=== PATIENT | male | born 1945 | race Caucasian/White ===

== ENCOUNTER 2016-07-24 10:48 | Observation (INO) | payer BC, MEDICARE ==
[2016-07-24 14:25] LABS: BASOPHIL % 0.2 % (0.0-0.4); Lymphocytes % 13.8 % (24.0-44.0); Mean Cell Volume 96.6 fl (78-100); Mean Platelet Volume 9.9 fl (6-9.5); Platelet Count 73 K/mm3 (150-450); Red Blood Count 3.77 M/mm3 (4.1-5.6); Red Cell Distribution Width 15.1 % (11.5-14.0); White Blood Count 12.4 K/mm3 (4.0-10.5)
[2016-07-24 14:28] LABS: Mean Corpuscular Hemoglobin 29.9 pg (26-32)
[2016-07-24 14:34] LABS: ALBUMIN 3.1 g/dL (3.4-5.0); ANION GAP 19.5 MEQ/L (5-15); BILIRUBIN,TOTAL 1.1 mg/dL (0.2-1.0); Carbon Dioxide 16.7 mEq/L (21-32); Potassium 4.7 mEq/L (3.5-5.1); Total Protein 8.4 gm/dL (6.4-8.2)
[2016-07-24] MEDS: Sodium Chloride 0.9% 1000 ML 1,000 ML IV SCH (14:57)
[2016-07-24] MEDS: ROCEPHIN 1 Gm-D5w 50 ml Bag** 1 G/50 ML IVPB IV SCH (15:01)
--- NOTE | 2016-07-24 15:03 | XRAY ---
Indication: Short of breath. Productive cough. Comparison: None PA/lateral chest demonstrates right lower lobe infiltrate versus atelectasis. Remaining heart and lungs normal. Bony thorax intact with mild spinal degenerative changes.
[2016-07-24 19:07] LABS: Bacteria MODERATE /HPF (NEGATIVE); COMPLETE URINE MICROSCOPIC? YES; Collection Type CLEAN CATCH; Epithelial Cells FEW /HPF (FEW); Mucus MODERATE /HPF (NEGATIVE); WBC 15-25 /HPF (0-5)
[2016-07-24] MEDS: COREG 12.5 MG PO SCH (21:35)
[2016-07-25] MEDS: Sodium Chloride 0.9% 1000 ML 1,000 ML IV SCH (05:03)
[2016-07-25] MEDS: COREG 12.5 MG PO SCH ×2 (10:21→21:38)
[2016-07-25] MEDS: Amaryl 2 MG PO SCH (10:21)
[2016-07-25] MEDS: ROCEPHIN 1 Gm-D5w 50 ml Bag** 1 G/50 ML IVPB IV SCH (10:22)
[2016-07-25] MEDS: Flomax 0.4 MG PO SCH (10:22)
[2016-07-25 10:58] LABS: Mean Cell Volume 95.4 fl (78-100); Mean Platelet Volume 9.5 fl (6-9.5); Platelet Count 52 K/mm3 (150-450); Red Blood Count 3.27 M/mm3 (4.1-5.6); Red Cell Distribution Width 14.8 % (11.5-14.0); White Blood Count 6.6 K/mm3 (4.0-10.5)
[2016-07-25 11:03] LABS: Mean Corpuscular Hemoglobin 29.9 pg (26-32)
[2016-07-25 11:57] LABS: ALBUMIN 2.7 g/dL (3.4-5.0); ANION GAP 16.1 MEQ/L (5-15); BILIRUBIN,TOTAL 0.5 mg/dL (0.2-1.0); Potassium 4.4 mEq/L (3.5-5.1); Total Protein 7.1 gm/dL (6.4-8.2)
--- NOTE | 2016-07-25 14:29 | PROG NOTE ---
DATE: 07/25/16 Chart reviewed. Events noted. At the time of this evaluation, the patient is alert, awake, and comfortable. States his shortness of breath and cough are feeling better. Diarrhea has improved. Denies abdominal pain, nausea, or vomiting. VITALS: BP 114/58, heart rate 66, respiratory rate 18, temperature 97.6, O2 saturation 94%. HEENT: Pallor present. No icterus noted. NECK: No JVD present. CVS: S1 and S2 present. RESPIRATORY: Breath sounds bilaterally diminished. Bibasilar crackles present. ABDOMEN: Obese, soft, nontender. NEURO: He is alert and oriented X 3. Evaluation of motor strength in bilateral upper and lower extremities reveals grossly intact motor strength. EXTREMITIES: Reveals no edema on bilateral lower extremities. LABORATORY DATA: Labs from 07/24/16 were reviewed. Today's labs show CBC with WBC of 6.6, Hgb 9.8, Hgb 31.2, platelets 52. CMP shows bicarbonate of 18, BUN 64, creatinine 3.28. UA shows positive nitrite, 25-50 RBC, 15-25 WBC, a few epithelial cells, moderate bacteria. Chest x-ray from 07/24/16 shows right lower lobe infiltrate vs atelectasis. Blood cultures are pending. Medications were reviewed. ASSESSMENT: 70 y/o male with impression: 1. URINARY TRACT INFECTION. 2. PNEUMONIA. 3. ANEMIA (MILD DROP IN HGB/HCT). 4. HISTORY OF DIARRHEA WITH BLACK STOOLS (IMPROVING). 5. RENAL INSUFFICIENCY. 6. HISTORY OF HYPERTENSION. 7. HISTORY OF DIABETES MELLITUS. PLAN: 1. Continue IV hydration. 2. Continue broad spectrum IV antibiotics. 3. Continue to follow CBC, electrolytes, and cultures. Patient's clinical condition, work-up results, and plan of management were discussed with patient and family. They seem to be in understanding and agreement.
[2016-07-25] MEDS ORDERED: DUONEB 0.5-3 MG/3 ml Neb IH PRN (20:23)
[2016-07-26 05:41] LABS: Mean Cell Volume 94.8 fl (78-100); Mean Platelet Volume 10.5 fl (6-9.5); Platelet Count 63 K/mm3 (150-450); Red Blood Count 3.09 M/mm3 (4.1-5.6); Red Cell Distribution Width 14.7 % (11.5-14.0); White Blood Count 6.3 K/mm3 (4.0-10.5)
[2016-07-26 05:51] LABS: Mean Corpuscular Hemoglobin 29.7 pg (26-32)
[2016-07-26 06:23] LABS: ANION GAP 16.3 MEQ/L (5-15); Carbon Dioxide 16.6 mEq/L (21-32); Potassium 4.1 mEq/L (3.5-5.1)
--- NOTE | 2016-07-26 08:18 | XRAY ---
Indication: Pneumonia. Comparison: July 24, 2016. PA/lateral chest obtained with lateral view slightly degraded by respiration artifact. There remains right lower lobe infiltrate/atelectasis unchanged. Remaining heart and lungs unremarkable. Comment: Preliminary interpretation was made by [facility]. No critical discrepancy.
[2016-07-26] MEDS: Sodium Chloride 0.9% 1000 ML 1,000 ML IV SCH (09:34)
[2016-07-26] MEDS: ROCEPHIN 1 Gm-D5w 50 ml Bag** 1 G/50 ML IVPB IV SCH (09:36)
[2016-07-26] MEDS: Flomax 0.4 MG PO SCH (09:36)
[2016-07-26] MEDS: Amaryl 2 MG PO SCH (09:36)
[2016-07-26] MEDS: COREG 12.5 MG PO SCH ×2 (09:36→22:35)
[2016-07-26 19:15] LABS: Collection Type CLEAN CATCH
[2016-07-26 19:16] LABS: Bacteria MODERATE /HPF (NEGATIVE); COMPLETE URINE MICROSCOPIC? YES; Epithelial Cells MODERATE /HPF (FEW); Ph 5.5 (5-6); WBC 25-50 /HPF (0-5)
[2016-07-27] MEDS: Sodium Chloride 0.9% 1000 ML 1,000 ML IV SCH ×2 (00:26→16:02)
[2016-07-27 05:42] LABS: Mean Cell Volume 95.6 fl (78-100); Mean Corpuscular Hemoglobin 29.8 pg (26-32); Mean Platelet Volume 9.8 fl (6-9.5); Platelet Count 49 K/mm3 (150-450); Red Blood Count 2.95 M/mm3 (4.1-5.6); Red Cell Distribution Width 14.4 % (11.5-14.0); White Blood Count 3.4 K/mm3 (4.0-10.5)
[2016-07-27 06:08] LABS: ALBUMIN 2.4 g/dL (3.4-5.0); ANION GAP 14.7 MEQ/L (5-15); BILIRUBIN,TOTAL 0.2 mg/dL (0.2-1.0); Carbon Dioxide 17.3 mEq/L (21-32); Potassium 3.8 mEq/L (3.5-5.1); Total Protein 6.4 gm/dL (6.4-8.2)
--- NOTE | 2016-07-27 08:00 | XRAY ---
Indication: Pneumonia. Comparison: One day earlier. PA/lateral chest unchanged again demonstrating right lower lobe infiltrate/atelectasis. Remaining heart and lungs unremarkable. No new abnormalities.
[2016-07-27] MEDS: ROCEPHIN 1 Gm-D5w 50 ml Bag** 1 G/50 ML IVPB IV SCH (09:25)
[2016-07-27] MEDS: Flomax 0.4 MG PO SCH (09:25)
[2016-07-27] MEDS: Amaryl 2 MG PO SCH (09:25)
[2016-07-27] MEDS: COREG 12.5 MG PO SCH ×2 (09:25→20:58)
[2016-07-27] MEDS ORDERED: D50W 50 ml Abboject IV ONE ×2 (21:35→21:37)
[2016-07-27] MEDS ORDERED: Dextrose 5%-NS IV Solution 1000 ML 1,000 ML IV ONE (21:36)
[2016-07-27] MEDS: D50W 50 ml Abboject IV ONE ×2 (21:40→21:48)
[2016-07-27] MEDS ORDERED: Dextrose 5%-NS IV Solution 1000 ML 1,000 ML IV SCH (22:00)
[2016-07-28 06:14] LABS: Mean Cell Volume 95.7 fl (78-100); Mean Corpuscular Hemoglobin 29.8 pg (26-32); Mean Platelet Volume 9.9 fl (6-9.5); Platelet Count 51 K/mm3 (150-450); Red Blood Count 3.02 M/mm3 (4.1-5.6); Red Cell Distribution Width 14.5 % (11.5-14.0); White Blood Count 2.3 K/mm3 (4.0-10.5)
[2016-07-28 06:31] LABS: ANION GAP 16.1 MEQ/L (5-15); Carbon Dioxide 17.6 mEq/L (21-32); Potassium 3.9 mEq/L (3.5-5.1)
--- NOTE | 2016-07-28 08:52 | XRAY ---
Indication: Bloating. Possible colitis. History of right renal cancer. Multiple contiguous axial images obtained through the abdomen and pelvis without contrast as ordered. Comparison: None Images through the lung bases and upper abdomen are degraded by respiration artifact. Lung bases grossly clear. Heart is not enlarged. Gastroesophageal varices present. Stomach is fluid distended. Noncontrasted bowel loops appear nonobstructed. Minimal scattered colonic diverticulosis. Liver appears cirrhotic. Spleen is enlarged measuring 16 cm in greatest dimension. Previous cholecystectomy. No free fluid/air. There is a 7.2 cm right upper pole renal mass. Left kidney is atrophic along with hydronephrosis and 1.7 cm hydroureter. No calculus in either system. Urinary bladder demonstrates circumferential wall thickening either By incomplete distention versus cystitis. Enlarged/nodular prostate gland impresses on the base of the bladder. Remaining pancreas and adrenal glands appear unremarkable for noncontrasted exam. Mild aortoiliac calcifications without AAA. Osseous structures intact with mild degenerative changes throughout the spine. Small bilateral fatty inguinal hernias. Impression: 1. Right renal mass presumed known cancer as clinically reported. Atrophic left kidney with hydronephrosis and hydroureter but no calculus. Findings could be chronic or explained by recent passage of calculus. 2. Urinary bladder wall thickening either explained by incomplete distention versus underlying cystitis. Correlate clinically. 3. Cirrhotic liver, splenomegaly, and gastroesophageal varices. 4. Diverticulosis without diverticulitis. 5. Bilateral fatty inguinal hernias. Comment: Preliminary interpretation was made by [facility]. No discrepancy. CTDI 27.71
[2016-07-28] MEDS: ROCEPHIN 1 Gm-D5w 50 ml Bag** 1 G/50 ML IVPB IV SCH (09:14)
[2016-07-28] MEDS: Flomax 0.4 MG PO SCH (09:14)
[2016-07-28] MEDS: COREG 12.5 MG PO SCH (09:14)
[2016-07-28 10:57] VITALS: BP 124/68; PULSE 66
[2016-07-28 11:05] VITALS: O2SAT 96
--- NOTE | 2016-07-28 14:07 | PCM.DS ---
Discharge Summary Date of Admission: 07/24/16 10:59 Admitting Physician: BING SALGADO Primary Care Provider: BING SALGADO Allergies Allergies No Known Drug Allergies Allergy (Verified 07/24/16 13:48) Hospital Summary - Hospital Course Hospital Course: Chief Complaint Diagnosis colitis Allergies Allergy/AdvReac Type Severity Reaction Status Date / Time No Known Drug Allergies Allergy Verified 07/24/16 13:48 Vital Signs (Last 24 hours) Temp Pulse Resp BP Pulse Ox 07/28/16 11:03 96 07/28/16 10:56 98.2 F 66 18 124/68 95 07/28/16 07:13 98.0 F 64 18 122/58 96 07/28/16 07:05 67 18 97 07/28/16 03:54 98.2 F 66 22 153/70 94 L 07/28/16 00:08 98.2 F 71 22 131/76 95 07/27/16 21:14 95 07/27/16 20:00 97.7 F 66 20 140/63 95 07/27/16 16:00 97.8 F 61 20 149/72 93 L Home Medications Medication Instructions Recorded Confirmed Last Taken Type Carvedilol 12.5 mg [Coreg 12.5 12.5 mg PO BID 07/24/16 07/24/16 Unknown History mg] Current Medications Generic Name Dose Route Start Last Admin Trade Name Freq PRN Reason Stop Dose Admin Albuterol/Ipratropium 3 ml 07/25/16 20:23 07/25/16 20:25 Duoneb 0.5-3 Mg/3 Ml Neb IH 08/24/16 20:22 3 ml Q4HPRN PRN Administration SHORTNESS OF BREATH/WHEEZING Carvedilol 12.5 mg 07/24/16 22:00 07/28/16 09:14 Coreg 12.5 Mg PO 08/23/16 21:59 12.5 mg BID CAMERON Administration Ceftriaxone Sodium/Dextrose 1 g in 50 mls @ 100 mls/hr 07/24/16 14:45 09:14 Rocephin 1 Gm-D5w 50 Ml Bag IV 08/23/16 14:44 100 mls/hr Q24H10 CAMERON Administration Dextrose/Sodium Chloride 1,000 mls @ 50 mls/hr 07/27/16 22:00 07/27/16 21:49 Dextrose 5%-Ns Iv Solution 1000 Ml IV 08/26/16 21:59 50 mls/hr .Q20H CAMERON Administration Tamsulosin HCl 0.4 mg 07/25/16 10:00 07/28/16 09:14 Flomax 0.4 Mg PO 08/24/16 09:59 0.4 mg DAILY CAMERON Administration Discontinued Medications Generic Name Dose Route Start Last Admin Trade Name Altagracia PRN Reason Stop Dose Admin Dextrose 50 ml 07/27/16 21:37 07/27/16 21:48 D50w 50 Ml Abboject IV 07/27/16 21:38 50 ml STAT ONE Administration Dextrose Confirm 07/27/16 21:35 D50w 50 Ml Abboject Administered 07/27/16 21:36 Dose 100 ml IV .STK-MED ONE Dextrose 100 ml 07/27/16 21:37 07/27/16 21:49 D50w 50 Ml Abboject IV 07/27/16 21:38 50 ml STAT ONE Administration Glimepiride 4 mg 07/25/16 10:00 07/27/16 09:25 Amaryl 2 Mg PO 08/24/16 09:59 4 mg DAILY CAMERON Administration Sodium Chloride 1,000 mls @ 75 mls/hr 07/24/16 14:30 07/27/16 16:02 Sodium Chloride 0.9% 1000 Ml IV 08/23/16 14:29 75 mls/hr .[id number] CAMERON Administration Dextrose/Sodium Chloride Confirm 07/27/16 21:36 Dextrose 5%-Ns Iv Solution 1000 Ml Administered 07/27/16 21:37 Dose 1,000 mls @ ud IV .STK-MED ONE Intake & Output (Last 24 hours) 07/26/16 07/27/16 07/28/16 07/29/16 11:59 11:59 11:59 11:59 Intake Total 3626 4094 3466 380 Output Total 375 1000 900 Balance 3251 3094 2566 380 Microbiology Results (Last 24 hours) 07/24/16 18:40 Clean Catch Midstream - Final Staphylococcus Epidermidis Laboratory Results (Last 24 hours) 07/28/16 07/28/16 05:40 05:40 WBC 2.3 L RBC 3.02 L Hgb 9.0 L Hct 28.9 L MCV 95.7 MCH 29.8 MCHC 31.1 L RDW 14.5 H Plt Count 51 L MPV 9.9 H Sodium 144 Potassium 3.9 Chloride 114 H Carbon Dioxide 17.6 L Anion Gap 16.1 H BUN 48 H Creatinine 2.22 H Estimated GFR 31 Glucose 95 Calcium 7.9 L Slides for Path Review YES Orders (Last 24 hours) Category Date Time Status BMP AM.LAB Lab 07/28/16 05:40 Completed CBC AM.LAB Lab 07/28/16 05:40 Completed D5ns 1000 ml [Dextrose 5%-NS IV Solution 1000 ML] 1,000 Med 07/27/16 22:00 Active ml IV 50 mls/hr D5ns 1000 ml [Dextrose 5%-NS IV Solution 1000 ML] 1,000 Med 07/27/16 21:36 Discontinued ml IV UD Dextrose 50%-Water Syringe [D50W 50 ml Abboject] Med 07/27/16 21:37 Discontinued 100 ml IV STAT ONE Dextrose 50%-Water Syringe [D50W 50 ml Abboject] Med 07/27/16 21:37 Discontinued 50 ml IV STAT ONE Patient Care Notes (Last 24 hours) 07/27/16 22:13 Nursing Note by Lety Conteh after checking pt blood sugar at 2058 [address] Zavala informed nursing that pt accu check was 51 and pt was lethargic. nursing found pt to be lethargic, diaphoretic, with slurred speech. pt was given orange juice with added sugar which he drank without difficulty. pt refused ice cream but did drink a partial regular soda. pt remained lethergic and slurred. pt was oreinter to person and place but not to time. [facility] notified physician orders were entered and dextrose given per APR as ordered. pt condition slowly improved until he was once again alert and oriented and speech returned to normal at 2200. pt accu ck at 220 was 290. pt encouraged to eat some protein and was provided with a ham sandwich per his request, but at the time of this not had not eaten any of it. pt denies needs and is resting in bed without distress. Initialized on 07/27/16 22:13 - END OF NOTE 07/27/16 17:25 [employer] Note by Claudia Pratt Pt refuses to use urinal. Initialized on 07/27/16 17:25 - END OF NOTE Patient is feeling better, last 24 hours events noted, patient also understand about CT scan report. Patient has right renal mass which has not grown recently , patient is also informed about right loer lobe pneumonia and advise to stay on abx for 5 more days, follow up with Dr Myles Salgado in 3 days - Vitals & Intake/Output Vital Signs: Vital Signs Temperature 98.2 F 07/28/16 10:56 Pulse Rate 66 07/28/16 10:56 Respiratory Rate 18 07/28/16 10:56 Blood Pressure 124/68 07/28/16 10:56 O2 Sat by Pulse Oximetry 96 07/28/16 11:03 Intake & Output: Intake & Output 07/26/16 07/27/16 07/28/16 07/29/16 11:59 11:59 11:59 11:59 Intake Total 3626 4094 3466 380 Output Total 375 1000 900 Balance 3251 3094 2566 380 - Lab Result Diagrams: 07/28/16 05:40 07/28/16 05:40 Lab Results-Last 24 Hrs: Accuchecks Date 07/28/16 Date 07/28/16 Date 07/28/16 Date 07/27/16 Date 07/27/16 Time 11:30 Time 07:30 Time 05:15 Time 20:59 Time 16:30 Accucheck Value: 177 Accucheck Value: 110 Accucheck Value: 96 Accucheck Value: 51 Accucheck Value: 62 Lab Results-Last 24 Hours 07/28/16 07/28/16 Range/Units 05:40 05:40 WBC 2.3 L (4.0-10.5) K/mm3 RBC 3.02 L (4.1-5.6) M/mm3 Hgb 9.0 L (12.5-18.0) gm/dl Hct 28.9 L (42-50) % MCV 95.7 (78-100) fl MCH 29.8 (26-32) pg MCHC 31.1 L (32-36) g/dl RDW 14.5 H (11.5-14.0) % Plt Count 51 L (150-450) K/mm3 MPV 9.9 H (6-9.5) fl Sodium 144 (136-145) mEq/L Potassium 3.9 (3.5-5.1) mEq/L Chloride 114 H (98-107) mEq/L Carbon Dioxide 17.6 L (21-32) mEq/L Anion Gap 16.1 H (5-15) MEQ/L BUN 48 H (9-20) mg/dL Creatinine 2.22 H (0.55-1.30) mg/dl Estimated GFR 31 ML/MIN Glucose 95 (70-110) MG/DL Calcium 7.9 L (8.5-10.1) mg/dL Slides for Path Review YES Micro Results-Entire Visit: Microbiology 07/24/16 18:40 - Final Clean Catch Midstream Staphylococcus Epidermidis 07/24/16 11:30 Blood Culture - Preliminary Blood NO GROWTH TO DATE Accuchecks Date 07/28/16 Date 07/28/16 Date 07/28/16 Date 07/27/16 Date 07/27/16 Time 11:30 Time 07:30 Time 05:15 Time 20:59 Time 16:30 Accucheck Value: 177 Accucheck Value: 110 Accucheck Value: 96 Accucheck Value: 51 Accucheck Value: 62 - Radiology Exams Ordered Rad Exams-Entire Visit: Radiology Procedures Category Date Time Status CHEST 2 VIEWS (PA AND LAT) DAILY Exams 07/26/16 14:15 Completed CHEST 2 VIEWS (PA AND LAT) Routine Exams 07/27/16 08:00 Completed - Procedures and Test Procedures and Tests throughout Hospitalization: Therapy Orders & Screens 07/25/16 20:25 Respiratory Nebulizer UD Comment: duoneb q4prn Diagnosis: colitis 07/27/16 11:01 Incentive Spirometry Assessmen UD Comment: Diagnosis: colitis Discharge Exam General Appearance: no apparent distress, alert Neurologic Exam: alert, oriented x 3, cooperative, normal mood/affect, nml cerebellar function, sensation nml, No motor deficits Skin Exam: normal color, warm, dry Eye Exam: PERRL, EOMI, eyes nml inspection Ears, Nose, Throat Exam: normal ENT inspection, pharynx normal, moist mucous membranes Neck Exam: normal inspection, non-tender, supple, full range of motion Respiratory Exam: normal breath sounds, lungs clear, No respiratory distress Cardiovascular Exam: regular rate/rhythm, normal heart sounds Gastrointestinal/Abdomen Exam: soft, No tenderness, No mass Extremity Exam: normal inspection, normal range of motion Back Exam: normal inspection, normal range of motion, No CVA tenderness, No vertebral tenderness Male Genitalia Exam: deferred Rectal Exam: deferred Final Diagnosis/Problem List - Final Discharge Diagnosis/Problem (1) Pneumonia Current Visit: Yes Status: Acute (2) Mass of right kidney Current Visit: Yes Status: Chronic - Discharge Discharge Date: 07/28/16 Disposition: Home, Self-Care Condition: Stable Prescriptions: New Levofloxacin [Levaquin] 250 mg PO DAILY #5 tablet Continue Glimepiride 2 mg [Amaryl 2 MG] 4 mg PO DAILY Tamsulosin HCl 0.4 mg [Flomax 0.4 MG] 0.4 mg PO DAILY Carvedilol 12.5 mg [Coreg 12.5 mg] 12.5 mg PO BID Instructions: Pneumonia -- Adult Follow up with: BING SALGADO MD [Primary Care Provider] - Call for Appointment Forms: Discharge Instructions
== END 2016-07-28 15:10 | disposition home or self-care (01) ==
LOC: MED SURG 10:59
PROVIDERS: ADMIT General Practice; ATTEND General Practice
DX: J18.9 Pneumonia, unspecified organism (principal); N39.0 Urinary tract infection, site not specified; N28.89 Other specified disorders of kidney and ureter; E11.65 Type 2 diabetes mellitus with hyperglycemia; C64.1 Malignant neoplasm of right kidney, except renal pelvis; D64.9 Anemia, unspecified; A09 Infectious gastroenteritis and colitis, unspecified; I10 Essential (primary) hypertension; M19.90 Unspecified osteoarthritis, unspecified site; N40.0 Benign prostatic hyperplasia without lower urinary tract symptoms; Z79.899 Other long term (current) drug therapy
CPT/HCPCS: 36415; 71020; 74176; 80048; 80053; 81000; 82962; 83036; 85025; 85027; 87040; 87077; 87086; 87186; 94640; 94760; G0378; J0696; A9270-GY

== ENCOUNTER 2018-10-21 19:53 | Emergency (ER) | payer BC, MEDICARE ==
--- NOTE | 2018-10-21 19:55 | ERPHSYRPT ---
- History of Present Illness Time Seen by Provider: 10/21/18 19:55 Source: patient Exam Limitations: no limitations Physician History: 73 y/o white male on MWF dialysis for renal failure presents with slow ooze from left forearm AV fistula site. pt is relatively new at dialysis. site accessed yesterday and oozing is slow but present. here for evaluation Timing/Duration: yesterday Severity: mild Location: other (left forearm av fistula site) Associated Symptoms: denies symptoms Allergies/Adverse Reactions: No Known Drug Allergies Allergy (Unverified 10/21/18 20:02) Home Medications: Tamsulosin HCl 0.4 mg [Flomax 0.4 MG] 0.4 mg PO DAILY 09/09/14 [History] Bumetanide 2 mg PO BID 02/10/18 [History] Ergocalciferol (Vitamin D2) [Vitamin D2] 50,000 unit PO Q7D 02/10/18 [History] Ferrous Fumarate [Ferretts] 325 mg PO BID 02/10/18 [History] Levothyroxine Sodium 100 Mcg [Synthroid 100 Mcg] 100 mcg PO DAILY 02/10/18 [History] Potassium Chloride 10 Meq Tab* [Klor Con 10 MEQ] 10 meq PO TID 04/29/18 [ History] Allopurinol 100 mg [Zyloprim 100 mg] 100 mg PO BID 06/01/18 [History] Glimepiride 2 mg [Amaryl 2 MG] 2 mg PO DAILY 06/01/18 [History] Magnesium Oxide 400 mg [Mag-Ox 400] 400 mg PO BID 06/01/18 [History] Doxycycline Monohydrate 100 mg PO DAILY 08/11/18 [History] Hx Tetanus, Diphtheria Vaccination/Date Given: No Hx Influenza Vaccination/Date Given: No Hx Pneumococcal Vaccination/Date Given: No - Review of Systems Constitutional: No Symptoms Eyes: No Symptoms Ears, Nose, & Throat: No Symptoms Respiratory: No Symptoms Cardiac: No Symptoms Abdominal/Gastrointestinal: No Symptoms Genitourinary Symptoms: No Symptoms Musculoskeletal: No Symptoms Skin: Other (slow ooze from left av fistula site) Neurological: No Symptoms Psychological: No Symptoms Endocrine: No Symptoms Hematologic/Lymphatic: No Symptoms Immunological/Allergic: No Symptoms All Other Systems: Reviewed and Negative - Past Medical History Pertinent Past Medical History: Yes Neurological History: No Pertinent History ENT History: No Pertinent History Cardiac History: Hypertension Respiratory History: No Pertinent History Endocrine Medical History: Diabetes Type II, Liver Disease Musculoskeletal History: No Pertinent History GI Medical History: Gallbladder Disease, Hernia, Other History: Kidney Cancer Psycho-Social History: No Pertinent History Male Reproductive Disorders: Prostate Problems Other Medical History: pancreatitis and new renal mass with acute kidney failure -fistula placed, 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 1960 ureter blockage. fistula L arm - Social History Smoking Status: Never smoker Exposure to second hand smoke: Yes Drug Use: none Patient Lives Alone: No - Nursing Vital Signs Nursing Vital Signs: Initial Vital Signs Temperature 98.1 F 10/21/18 20:03 Pulse Rate 80 10/21/18 20:03 Respiratory Rate 18 10/21/18 20:03 Blood Pressure 134/63 10/21/18 20:03 O2 Sat by Pulse Oximetry 95 10/21/18 20:03 Pain Scale Pain Intensity 0 - Physical Exam General Appearance: no apparent distress, alert, anxiety Eye Exam: PERRL/EOMI Ears, Nose, Throat Exam: normal ENT inspection, moist mucous membranes Neck Exam: normal inspection, non-tender, supple, full range of motion Gastrointestinal/Abdomen Exam: No tenderness Rectal Exam: not done Back Exam: normal inspection, normal range of motion, No CVA tenderness, No vertebral tenderness Neurologic Exam: alert, oriented x 3, cooperative, resident care manager II-XII nml as tested Skin Exam: normal color, warm, dry, other (slow ooze from av fistula site left forearm. thrill present. no evidence of tenderness or infection) Lymphatic Exam: No adenopathy SpO2 Interpretation: normal O2 Delivery: Room Air - Progress Progress: improved Progress Note: 10/21/18 20:55 placed surgicel patch to area then covered with nonstick gauze and kerlex wrap with only slight pressure. after dressing place, strong thrill palpable. Counseled pt/family regarding: diagnosis, need for follow-up - Departure Departure Disposition: Home Clinical Impression: Hemorrhage of arteriovenous fistula Condition: Stable Critical Care Time: No Referrals: BRITTNEE FALCON MD [Primary Care Provider] - Additional Instructions: keep dressing in place. keep your dialysis appointment tomorrow. return to ED if concerns
[2018-10-21 20:23] VITALS: BP 134/63; PULSE 80; O2SAT 95
== END 2018-10-21 21:05 | disposition home or self-care (01) ==
LOC: ED 19:53
DX: I77.0 Arteriovenous fistula, acquired (principal); T82.838A Hemorrhage due to vascular prosthetic devices, implants and grafts, initial encounter; Z99.2 Dependence on renal dialysis; Z79.899 Other long term (current) drug therapy; I10 Essential (primary) hypertension; E11.9 Type 2 diabetes mellitus without complications; K76.9 Liver disease, unspecified; Z85.528 Personal history of other malignant neoplasm of kidney
CPT/HCPCS: 99283

== ENCOUNTER 2019-11-02 07:53 | Emergency (ER) | payer BC, MEDICARE ==
[2019-11-02] MEDS ORDERED: Zofran 4 MG/2 ML VIAL IV ONE (08:22)
[2019-11-02] MEDS ORDERED: Sodium Chloride 0.9% 1000 ML 1,000 ML IV STA (08:22)
--- NOTE | 2019-11-02 08:34 | ERPHSYRPT ---
- History of Present Illness Time Seen by Provider: 11/02/19 08:08 Source: patient, family Patient Subjective Stated Complaint: weakness, intermittent confusion Triage Nursing Assessment: pt to ED c/o weakness and intermittent confusion onset last night. pt reports pt [facility] [place] but ambulates without assistance and is normally not confused. pt had trouble getting out of bathtub last night. denies pain currently. A&OX4 on arrival. no neuro hx reported. pt goes to dialysis M,W,F and has bladder cancer. did not go to dialysis today, last was on Thursday. Physician History: 74 years old male with history of diabetes mellitus, end-stage renal disease on dialysis 3 times a week, hypertension, renal cancer, anemia of chronic disease needing regular transfusions is brought in the ER with chief complaint of sudden onset generalized weakness and fatigue, not acting right and intermittent confusion spells. report patient was in the bathtub last night, was not able to get out of it as his legs were giving away. Patient had blood work done outpatient with a hemoglobin of 6.1, was recommended to have transfusion but transfusion center sent patient to the ER for further evaluation as he did not seem right. Patient reports he has loose stool for the last couple of days but no nausea or vomiting. Denies any fever or chills but has generalized weakness fatigue with no energy to do his routine activities. Denies any fall or trauma. Denies any chest pain palpitations or shortness of breath. Denies any sick contact. Timing/Duration: yesterday, sudden Severity: moderate Modifying Factors: Improves With: movement, rest Associated Symptoms: nausea, weakness, No abdominal pain, No chest pain, No headaches, No loss of appetite, No syncope Allergies/Adverse Reactions: No Known Drug Allergies Allergy (Verified 11/02/19 08:17) Home Medications: Tamsulosin HCl 0.4 mg [Flomax 0.4 MG] 0.4 mg PO DAILY 09/09/14 [History] Bumetanide 2 mg PO BID 02/10/18 [History] Ergocalciferol (Vitamin D2) [Vitamin D2] 50,000 unit PO Q7D 02/10/18 [History] Ferrous Fumarate [Ferretts] 325 mg PO BID 02/10/18 [History] Levothyroxine Sodium 100 Mcg [Synthroid 100 Mcg] 100 mcg PO DAILY 02/10/18 [History] Potassium Chloride 10 Meq Tab* [Klor Con 10 MEQ] 10 meq PO TID 04/29/18 [Hist ory] Allopurinol 100 mg [Zyloprim 100 mg] 100 mg PO BID 06/01/18 [History] Glimepiride 2 mg [Amaryl 2 MG] 2 mg PO DAILY 06/01/18 [History] Magnesium Oxide 400 mg [Mag-Ox 400] 400 mg PO BID 06/01/18 [History] Clopidogrel Bisulfate 75 mg [PLAVIX 75 MG Tablet] 75 mg PO DAILY 04/14/19 [History] Sevelamer HCl [Renagel] 800 mg PO TID 04/14/19 [History] Hx Tetanus, Diphtheria Vaccination/Date Given: Yes Hx Influenza Vaccination/Date Given: Yes Hx Pneumococcal Vaccination/Date Given: Yes Immunizations Up to Date: Yes Travel Risk - International Travel Have you traveled outside of the country in past 3 weeks: No If Yes, where;: N - Coronavirus Screening Are you exhibiting any of the following symptoms?: No Close contact with a COVID-19 positive Pt in past 14-21 Days: No - Review of Systems Constitutional: Fatigue, Weakness Eyes: No Symptoms Ears, Nose, & Throat: No Symptoms Respiratory: No Symptoms Cardiac: No Symptoms Abdominal/Gastrointestinal: Diarrhea Genitourinary Symptoms: No Symptoms Musculoskeletal: No Symptoms Skin: No Symptoms Neurological: No Focal Weakness Psychological: No Symptoms Endocrine: No Symptoms Hematologic/Lymphatic: No Symptoms Immunological/Allergic: No Symptoms - Past Medical History Pertinent Past Medical History: Yes Neurological History: No Pertinent History ENT History: No Pertinent History Cardiac History: Other Respiratory History: No Pertinent History Endocrine Medical History: No Pertinent History Musculoskeletal History: Arthritis, Fractures GI Medical History: Gallbladder Disease, Hernia, Other History: Kidney Cancer Psycho-Social History: No Pertinent History Male Reproductive Disorders: Prostate Problems Other Medical History: Valve replacement 2019, unsure of what valve. Currently on kidney dialysis - Past Surgical History Past Surgical History: Yes Neuro Surgical History: No Pertinent History Cardiac: Cardiac Stent, Valve Replacement, Other Respiratory: No Pertinent History Gastrointestinal: Appendectomy, Cholecystectomy Genitourinary: Kidney Surgery Musculoskeletal: Orthopedic Surgery Male Surgical History: No Pertinent History Other Surgical History: fx skull, broken lt leg. 1960 ureter blockage. fistula L arm, aortic valve replacement 12/2018, [place] july 2019. 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 - Social History Smoking Status: Never smoker Exposure to second hand smoke: No Drug Use: none Patient Lives Alone: No - Nursing Vital Signs Nursing Vital Signs: Initial Vital Signs Temperature 97.8 F 11/02/19 08:04 Pulse Rate 90 11/02/19 08:04 Respiratory Rate 15 11/02/19 08:04 Blood Pressure 145/49 11/02/19 08:04 O2 Sat by Pulse Oximetry 99 11/02/19 08:04 Pain Scale Pain Intensity 0 - Physical Exam General Appearance: no apparent distress Eye Exam: PERRL/EOMI, eyes nml inspection Ears, Nose, Throat Exam: normal ENT inspection Neck Exam: normal inspection, non-tender, supple, full range of motion Respiratory Exam: normal breath sounds, lungs clear Cardiovascular Exam: regular rate/rhythm, normal heart sounds Gastrointestinal/Abdomen Exam: soft, normal bowel sounds, No tenderness Back Exam: normal inspection Extremity Exam: normal inspection, normal range of motion, pelvis stable Neurologic Exam: alert, oriented x 3, cooperative, rn trauma II-XII nml as tested, sensation nml, No nml station & gait, No motor deficits, No sensory deficit Skin Exam: normal color SpO2 Interpretation: normal SpO2: 99 O2 Delivery: Room Air - Course Nursing assessment & vital signs reviewed: Yes EKG Interpreted by Me: RATE, NORMAL AXIS, prolonged QT interval, NORMAL QRS Ordered Tests: Active Orders 24 hr Category Date Time Status EKG-ER Only STAT Care 11/02/19 08:28 Completed IV Insertion STAT Care 11/02/19 08:22 Completed NPO (ED) STAT Care 11/02/19 08:22 Completed ABDOMEN AND PELVIS W/0 CONTRAS [CT] Stat Exams 11/02/19 08:23 Completed CHEST 1 VIEW (PORTABLE) Stat Exams 11/02/19 08:24 Completed BLOOD CULTURE Stat Lab 11/02/19 09:18 Received BNP [NT PRO BNP] Stat Lab 11/02/19 10:00 Completed CBC W DIFF Stat Lab 11/02/19 09:18 Completed CMP Stat Lab 11/02/19 09:18 Completed CULTURE,URINE Stat Lab 11/02/19 10:18 Received LIPASE Stat Lab 11/02/19 09:18 Completed Lactic Acid Stat Lab 11/02/19 09:27 Completed Manual Differential NC Stat Lab 11/02/19 09:18 Completed POCT GLUCOSE Stat Lab 11/02/19 08:21 Completed TROPONIN Q3H Lab 11/02/19 08:30 Completed TROPONIN Q3H Lab 11/02/19 11:46 Completed UA W/RFX UR CULTURE Stat Lab 11/02/19 10:18 Completed Urine Triage Profile Stat Lab 11/02/19 10:18 Completed Medication Summary Discontinued Medications Generic Name Dose Route Start Last Admin Trade Name Freq PRN Reason Stop Dose Admin Sodium Chloride 1,000 mls @ 999 mls/hr 11/02/19 08:22 11/02/19 08:32 Sodium Chloride 0.9% 1000 Ml IV 11/02/19 09:22 Not Given .Q1H1M STA Levofloxacin/Dextrose 250 mg in 50 mls @ 50 mls/hr 11/02/19 10:11 11/02/19 11:13 Levaquin 250mg/50ml D5w IV 11/02/19 11:10 50 ml/hr STAT STA 50 mls/hr Administration Piperacillin Sod/Tazobactam 100 mls @ 200 mls/hr 11/02/19 10:11 11/02/19 10:35 Sod 2.25 gm/ Sodium Chloride IV 11/02/19 10:40 200 mls/hr STAT ONE Administration Sodium Chloride Confirm 11/02/19 10:18 Sodium Chloride 100ml Mini-Bag Plus Administered 11/02/19 10:19 Dose 100 mls @ ud IV .STK-MED ONE Levofloxacin/Dextrose Confirm 11/02/19 11:11 Levaquin 250mg/50ml D5w Administered 11/02/19 11:12 Dose 250 mg in 50 mls @ ud IV .STK-MED ONE Sodium Chloride Confirm 11/02/19 11:17 Sodium Chloride 0.9% 1000 Ml Administered 11/02/19 11:18 Dose 1,000 mls @ ud .ROUTE .STK-MED ONE Ondansetron HCl 4 mg 11/02/19 08:22 11/02/19 08:33 Zofran 4 Mg/2 Ml Vial IV 11/02/19 08:23 Not Given STAT ONE Lab/Rad Data: Laboratory Result Diagrams 11/02/19 09:18 11/02/19 09:18 Laboratory Results 11/02/19 11/02/19 11/02/19 Range/Units 11:46 10:18 10:18 WBC (4.0-10.5) K/mm3 RBC (4.1-5.6) M/mm3 Hgb (12.5-18.0) gm/dl Hct (42-50) % MCV (78-100) fl MCH (26-32) pg MCHC (32-36) g/dl RDW (11.5-14.0) % Plt Count (150-450) K/mm3 MPV (7.5-11.0) fl Gran % (36.0-66.0) % Eos # (Auto) (0-0.5) Absolute Lymphs (auto) (1.0-4.6) Absolute Monos (auto) (0.0-1.3) Lymphocytes % (24.0-44.0) % Monocytes % (0.0-12.0) % Eosinophils % (0.00-5.0) % Basophils % (0.0-0.4) % Absolute Granulocytes (1.4-6.9) Segmented Neutrophils (36.-66.) % Lymphocytes (Manual) (24-44) % Monocytes (Manual) (0.0-12.0) % Basophils # (0-0.4) Platelet Estimate (NORMAL) RBC Morphology Poikilocytosis Anisocytosis Sodium (137-145) mmol/L Potassium (3.5-5.1) mmol/L Chloride (98-107) mmol/L Carbon Dioxide (22-30) mmol/L Anion Gap (5-15) MEQ/L BUN (9-20) mg/dL Creatinine (0.66-1.25) mg/dL Estimated GFR ML/MIN Glucose (74-106) mg/dL POC Glucometer (74 to 106) mg/dL Lactic Acid (0.4-2.0) Calcium (8.4-10.2) mg/dL Total Bilirubin (0.2-1.3) mg/dL AST (17-59) U/L ALT (0-50) U/L Alkaline Phosphatase (38-126) U/L Ammonia (9-30) umol/L Troponin I 0.033 (0.000-0.034) ng/mL NT-Pro-B Natriuret Pep (0-1800) pg/mL Serum Total Protein (6.3-8.2) g/dL Albumin (3.5-5.0) g/dL Lipase (23-300) U/L Urine Color YELLOW (YELLOW) Urine Appearance CLOUDY (CLEAR) Urine pH 6.0 (5-6) Ur Specific [place] 1.008 (1.005-1.025) Urine Protein 100 (Negative) Urine Ketones NEGATIVE (NEGATIVE) Urine Blood MODERATE (0-5) Spenser/ul Urine Nitrite NEGATIVE (NEGATIVE) Urine Bilirubin NEGATIVE (NEGATIVE) Urine Urobilinogen NEGATIVE (0-1) mg/dL Ur Leukocyte Esterase LARGE (NEGATIVE) Urine WBC (Auto) >100 (0-5) /HPF Urine RBC (Auto) 16-25 (0-2) /HPF U Hyaline Cast (Auto) 11-25 (0-2) /LPF U Epithel Cells (Auto) FEW (FEW) /HPF Urine Bacteria (Auto) MODERATE (NEGATIVE) /HPF Other Casts (Auto) 25-50 (NEGATIVE) /LPF Urine Yeast (Budding) Few (NEGATIVE) /HPF Urine Culture Reflexed YES (NO) Urine Glucose >=500 (NEGATIVE) mg/dL Urine Opiates Level NEGATIVE (NEGATIVE) Ur Methadone NEGATIVE (NEGATIVE) Urine Barbiturates NEGATIVE (NEGATIVE) Ur Phencyclidine (PCP) NEGATIVE (NEGATIVE) Urine Amphetamine NEGATIVE (NEGATIVE) U Benzodiazepine Level NEGATIVE (NEGATIVE) Urine Cocaine NEGATIVE (NEGATIVE) Urine Marijuana (THC) NEGATIVE (NEGATIVE) ABO Group Rh Factor Antibody Screen (NEGATIVE) Crossmatch (COMPATIBLE) 11/02/19 11/02/19 11/02/19 Range/Units 10:00 10:00 09:27 WBC (4.0-10.5) K/mm3 RBC (4.1-5.6) M/mm3 Hgb (12.5-18.0) gm/dl Hct (42-50) % MCV (78-100) fl MCH (26-32) pg MCHC (32-36) g/dl RDW (11.5-14.0) % Plt Count (150-450) K/mm3 MPV (7.5-11.0) fl Gran % (36.0-66.0) % Eos # (Auto) (0-0.5) Absolute Lymphs (auto) (1.0-4.6) Absolute Monos (auto) (0.0-1.3) Lymphocytes % (24.0-44.0) % Monocytes % (0.0-12.0) % Eosinophils % (0.00-5.0) % Basophils % (0.0-0.4) % Absolute Granulocytes (1.4-6.9) Segmented Neutrophils (36.-66.) % Lymphocytes (Manual) (24-44) % Monocytes (Manual) (0.0-12.0) % Basophils # (0-0.4) Platelet Estimate (NORMAL) RBC Morphology Poikilocytosis Anisocytosis Sodium (137-145) mmol/L Potassium (3.5-5.1) mmol/L Chloride (98-107) mmol/L Carbon Dioxide (22-30) mmol/L Anion Gap (5-15) MEQ/L BUN (9-20) mg/dL Creatinine (0.66-1.25) mg/dL Estimated GFR ML/MIN Glucose (74-106) mg/dL POC Glucometer (74 to 106) mg/dL Lactic Acid 3.6 H (0.4-2.0) Calcium (8.4-10.2) mg/dL Total Bilirubin (0.2-1.3) mg/dL AST (17-59) U/L ALT (0-50) U/L Alkaline Phosphatase (38-126) U/L Ammonia 15 (9-30) umol/L Troponin I (0.000-0.034) ng/mL NT-Pro-B Natriuret Pep 5660 H (0-1800) pg/mL Serum Total Protein (6.3-8.2) g/dL Albumin (3.5-5.0) g/dL Lipase (23-300) U/L Urine Color (YELLOW) Urine Appearance (CLEAR) Urine pH (5-6) Ur Specific [place] (1.005-1.025) Urine Protein (Negative) Urine Ketones (NEGATIVE) Urine Blood (0-5) Spenser/ul Urine Nitrite (NEGATIVE) Urine Bilirubin (NEGATIVE) Urine Urobilinogen (0-1) mg/dL Ur Leukocyte Esterase (NEGATIVE) Urine WBC (Auto) (0-5) /HPF Urine RBC (Auto) (0-2) /HPF U Hyaline Cast (Auto) (0-2) /LPF U Epithel Cells (Auto) (FEW) /HPF Urine Bacteria (Auto) (NEGATIVE) /HPF Other Casts (Auto) (NEGATIVE) /LPF Urine Yeast (Budding) (NEGATIVE) /HPF Urine Culture Reflexed (NO) Urine Glucose (NEGATIVE) mg/dL Urine Opiates Level (NEGATIVE) Ur Methadone (NEGATIVE) Urine Barbiturates (NEGATIVE) Ur Phencyclidine (PCP) (NEGATIVE) Urine Amphetamine (NEGATIVE) U Benzodiazepine Level (NEGATIVE) Urine Cocaine (NEGATIVE) Urine Marijuana (THC) (NEGATIVE) ABO Group Rh Factor Antibody Screen (NEGATIVE) Crossmatch (COMPATIBLE) 11/02/19 11/02/19 11/02/19 Range/Units 09:18 09:18 09:18 WBC (4.0-10.5) K/mm3 RBC (4.1-5.6) M/mm3 Hgb (12.5-18.0) gm/dl Hct (42-50) % MCV (78-100) fl MCH (26-32) pg MCHC (32-36) g/dl RDW (11.5-14.0) % Plt Count (150-450) K/mm3 MPV (7.5-11.0) fl Gran % (36.0-66.0) % Eos # (Auto) (0-0.5) Absolute Lymphs (auto) (1.0-4.6) Absolute Monos (auto) (0.0-1.3) Lymphocytes % (24.0-44.0) % Monocytes % (0.0-12.0) % Eosinophils % (0.00-5.0) % Basophils % (0.0-0.4) % Absolute Granulocytes (1.4-6.9) Segmented Neutrophils (36.-66.) % Lymphocytes (Manual) (24-44) % Monocytes (Manual) (0.0-12.0) % Basophils # (0-0.4) Platelet Estimate (NORMAL) RBC Morphology Poikilocytosis Anisocytosis Sodium (137-145) mmol/L Potassium (3.5-5.1) mmol/L Chloride (98-107) mmol/L Carbon Dioxide (22-30) mmol/L Anion Gap (5-15) MEQ/L BUN (9-20) mg/dL Creatinine (0.66-1.25) mg/dL Estimated GFR ML/MIN Glucose (74-106) mg/dL POC Glucometer (74 to 106) mg/dL Lactic Acid (0.4-2.0) Calcium (8.4-10.2) mg/dL Total Bilirubin (0.2-1.3) mg/dL AST (17-59) U/L ALT (0-50) U/L Alkaline Phosphatase (38-126) U/L Ammonia (9-30) umol/L Troponin I (0.000-0.034) ng/mL NT-Pro-B Natriuret Pep (0-1800) pg/mL Serum Total Protein (6.3-8.2) g/dL Albumin (3.5-5.0) g/dL Lipase (23-300) U/L Urine Color (YELLOW) Urine Appearance (CLEAR) Urine pH (5-6) Ur Specific [place] (1.005-1.025) Urine Protein (Negative) Urine Ketones (NEGATIVE) Urine Blood (0-5) Spenser/ul Urine Nitrite (NEGATIVE) Urine Bilirubin (NEGATIVE) Urine Urobilinogen (0-1) mg/dL Ur Leukocyte Esterase (NEGATIVE) Urine WBC (Auto) (0-5) /HPF Urine RBC (Auto) (0-2) /HPF U Hyaline Cast (Auto) (0-2) /LPF U Epithel Cells (Auto) (FEW) /HPF Urine Bacteria (Auto) (NEGATIVE) /HPF Other Casts (Auto) (NEGATIVE) /LPF Urine Yeast (Budding) (NEGATIVE) /HPF Urine Culture Reflexed (NO) Urine Glucose (NEGATIVE) mg/dL Urine Opiates Level (NEGATIVE) Ur Methadone (NEGATIVE) Urine Barbiturates (NEGATIVE) Ur Phencyclidine (PCP) (NEGATIVE) Urine Amphetamine (NEGATIVE) U Benzodiazepine Level (NEGATIVE) Urine Cocaine (NEGATIVE) Urine Marijuana (THC) (NEGATIVE) ABO Group AB Rh Factor POSITIVE Antibody Screen NEGATIVE (NEGATIVE) Crossmatch COMPATIBLE COMPATIBLE (COMPATIBLE) 11/02/19 11/02/19 11/02/19 Range/Units 09:18 09:18 08:30 WBC 2.6 L (4.0-10.5) K/mm3 RBC 1.73 L* (4.1-5.6) M/mm3 Hgb 5.2 L* (12.5-18.0) gm/dl Hct 17.0 L (42-50) % MCV 98.3 (78-100) fl MCH 30.1 (26-32) pg MCHC 30.6 L (32-36) g/dl RDW 20.5 H (11.5-14.0) % Plt Count 60 L (150-450) K/mm3 MPV 10.1 (7.5-11.0) fl Gran % 53.6 (36.0-66.0) % Eos # (Auto) 0.09 (0-0.5) Absolute Lymphs (auto) 0.51 L (1.0-4.6) Absolute Monos (auto) 0.43 (0.0-1.3) Lymphocytes % 19.7 L (24.0-44.0) % Monocytes % 16.6 H (0.0-12.0) % Eosinophils % 3.5 (0.00-5.0) % Basophils % 6.6 (0.0-0.4) % Absolute Granulocytes 1.39 L (1.4-6.9) Segmented Neutrophils 69 H (36.-66.) % Lymphocytes (Manual) 24 (24-44) % Monocytes (Manual) 7 (0.0-12.0) % Basophils # 0.17 (0-0.4) Platelet Estimate DECREASED (NORMAL) RBC Morphology ABNORMAL Poikilocytosis 3+ Anisocytosis 2+ Sodium 132 L (137-145) mmol/L Potassium 3.8 (3.5-5.1) mmol/L Chloride 94 L (98-107) mmol/L Carbon Dioxide 27 (22-30) mmol/L Anion Gap 14.5 (5-15) MEQ/L BUN 47 H (9-20) mg/dL Creatinine 3.98 H (0.66-1.25) mg/dL Estimated GFR 15.7 ML/MIN Glucose 473 H (74-106) mg/dL POC Glucometer (74 to 106) mg/dL Lactic Acid (0.4-2.0) Calcium 8.1 L (8.4-10.2) mg/dL Total Bilirubin 1.40 H (0.2-1.3) mg/dL AST 25 (17-59) U/L ALT 13 (0-50) U/L Alkaline Phosphatase 150 H (38-126) U/L Ammonia (9-30) umol/L Troponin I 0.038 H* (0.000-0.034) ng/mL NT-Pro-B Natriuret Pep (0-1800) pg/mL Serum Total Protein 6.6 (6.3-8.2) g/dL Albumin 3.1 L (3.5-5.0) g/dL Lipase 100 (23-300) U/L Urine Color (YELLOW) Urine Appearance (CLEAR) Urine pH (5-6) Ur Specific [place] (1.005-1.025) Urine Protein (Negative) Urine Ketones (NEGATIVE) Urine Blood (0-5) Spenser/ul Urine Nitrite (NEGATIVE) Urine Bilirubin (NEGATIVE) Urine Urobilinogen (0-1) mg/dL Ur Leukocyte Esterase (NEGATIVE) Urine WBC (Auto) (0-5) /HPF Urine RBC (Auto) (0-2) /HPF U Hyaline Cast (Auto) (0-2) /LPF U Epithel Cells (Auto) (FEW) /HPF Urine Bacteria (Auto) (NEGATIVE) /HPF Other Casts (Auto) (NEGATIVE) /LPF Urine Yeast (Budding) (NEGATIVE) /HPF Urine Culture Reflexed (NO) Urine Glucose (NEGATIVE) mg/dL Urine Opiates Level (NEGATIVE) Ur Methadone (NEGATIVE) Urine Barbiturates (NEGATIVE) Ur Phencyclidine (PCP) (NEGATIVE) Urine Amphetamine (NEGATIVE) U Benzodiazepine Level (NEGATIVE) Urine Cocaine (NEGATIVE) Urine Marijuana (THC) (NEGATIVE) ABO Group Rh Factor Antibody Screen (NEGATIVE) Crossmatch (COMPATIBLE) 11/02/19 Range/Units 08:21 WBC (4.0-10.5) K/mm3 RBC (4.1-5.6) M/mm3 Hgb (12.5-18.0) gm/dl Hct (42-50) % MCV (78-100) fl MCH (26-32) pg MCHC (32-36) g/dl RDW (11.5-14.0) % Plt Count (150-450) K/mm3 MPV (7.5-11.0) fl Gran % (36.0-66.0) % Eos # (Auto) (0-0.5) Absolute Lymphs (auto) (1.0-4.6) Absolute Monos (auto) (0.0-1.3) Lymphocytes % (24.0-44.0) % Monocytes % (0.0-12.0) % Eosinophils % (0.00-5.0) % Basophils % (0.0-0.4) % Absolute Granulocytes (1.4-6.9) Segmented Neutrophils (36.-66.) % Lymphocytes (Manual) (24-44) % Monocytes (Manual) (0.0-12.0) % Basophils # (0-0.4) Platelet Estimate (NORMAL) RBC Morphology Poikilocytosis Anisocytosis Sodium (137-145) mmol/L Potassium (3.5-5.1) mmol/L Chloride (98-107) mmol/L Carbon Dioxide (22-30) mmol/L Anion Gap (5-15) MEQ/L BUN (9-20) mg/dL Creatinine (0.66-1.25) mg/dL Estimated GFR ML/MIN Glucose (74-106) mg/dL POC Glucometer 303 H (74 to 106) mg/dL Lactic Acid (0.4-2.0) Calcium (8.4-10.2) mg/dL Total Bilirubin (0.2-1.3) mg/dL AST (17-59) U/L ALT (0-50) U/L Alkaline Phosphatase (38-126) U/L Ammonia (9-30) umol/L Troponin I (0.000-0.034) ng/mL NT-Pro-B Natriuret Pep (0-1800) pg/mL Serum Total Protein (6.3-8.2) g/dL Albumin (3.5-5.0) g/dL Lipase (23-300) U/L Urine Color (YELLOW) Urine Appearance (CLEAR) Urine pH (5-6) Ur Specific [place] (1.005-1.025) Urine Protein (Negative) Urine Ketones (NEGATIVE) Urine Blood (0-5) Spenser/ul Urine Nitrite (NEGATIVE) Urine Bilirubin (NEGATIVE) Urine Urobilinogen (0-1) mg/dL Ur Leukocyte Esterase (NEGATIVE) Urine WBC (Auto) (0-5) /HPF Urine RBC (Auto) (0-2) /HPF U Hyaline Cast (Auto) (0-2) /LPF U Epithel Cells (Auto) (FEW) /HPF Urine Bacteria (Auto) (NEGATIVE) /HPF Other Casts (Auto) (NEGATIVE) /LPF Urine Yeast (Budding) (NEGATIVE) /HPF Urine Culture Reflexed (NO) Urine Glucose (NEGATIVE) mg/dL Urine Opiates Level (NEGATIVE) Ur Methadone (NEGATIVE) Urine Barbiturates (NEGATIVE) Ur Phencyclidine (PCP) (NEGATIVE) Urine Amphetamine (NEGATIVE) U Benzodiazepine Level (NEGATIVE) Urine Cocaine (NEGATIVE) Urine Marijuana (THC) (NEGATIVE) ABO Group Rh Factor Antibody Screen (NEGATIVE) Crossmatch (COMPATIBLE) - Progress Progress: unchanged Progress Note: 11/02/19 10:34 74 years old is evaluated for generalized weakness and fatigue and some confusion. Patient has nonfocal neuro exam. Work-up showed significant anemia with a hemoglobin of 5, went over risk and benefits of transfusion and they wanted to go ahead with transfusion and does have history of transfusions in the past. Transfusion will be started in the ER. EKG did not show any acute ST elevations. Minimally elevated troponin in the presence of end-stage renal disease on dialysis and patient does not have any chest pain. I think is more of her renal related. Patient has a lactate of 3.6 which could be secondary to volume depletion versus sepsis and is given a dose of IV antibiotics. Patient is scheduled to have dialysis today and we do not have a inpatient dialysis services and patient needs to be admitted. I have D/w Dr. Portillo, patient is accepted for transfer. Plan discussed with patient and family who understand and agree with it. Discussed with Dr.: Other ( [facility] ) Will see patient in: hospital (observation) Counseled pt/family regarding: lab results, diagnosis, need for follow-up, rad results - Departure Departure Disposition: Transfer Clinical Impression: Symptomatic anemia, Encephalopathy acute, General weakness Sepsis Qualifiers: Sepsis type: sepsis due to unspecified organism Sepsis acute organ dysfunction status: unspecified Qualified Code(s): A41.9 - Sepsis, unspecified organism Condition: Stable Critical Care Time: Yes Critical Care Time(excluding separately billable procedures): Critical 30-74 mins Referrals: ALTON OLIVA [Primary Care Provider] -
--- NOTE | 2019-11-02 09:22 | XRAY ---
Indication: Weakness. Comparison: August 11, 2018. Portable chest remains clear. Heart is not enlarged with new cardiac valve replacement surgery and new left Port-A-Cath. Bony thorax intact again with mild degenerative changes.
--- NOTE | 2019-11-02 09:27 | XRAY ---
Indication: Left-sided pain. Multiple contiguous axial images obtained through the abdomen and pelvis without contrast as ordered. Comparison: July 25, 2016. Lung bases demonstrates minimal fibrosis/scarring. No infiltrate or effusion. Heart is not enlarged. Interval enlarging large paraesophageal varices. Noncontrasted stomach and bowel loops appear nonobstructed. Again cirrhotic liver with new tiny perihepatic and left colic gutter ascites. Worsening splenomegaly measuring 19 cm, previously 16 cm. Also worsening splenorenal varices with splenic vein measures 3.7 cm in diameter, previously 2.4 cm. There remains cholecystectomy, 7.2 cm right upper pole renal mass, left renal atrophy, left hydroureter, and urinary bladder circumferential wall thickening. Remaining pancreas and adrenal glands are unremarkable for noncontrast exam. Worsening moderate scattered arteriosclerotic disease without AAA. Osseous structures again demonstrates mild degenerative changes throughout the thoracolumbar spine. Stable small bilateral fatty inguinal hernias. Impression: 1. Again cirrhotic liver with new tiny ascites. Worsening splenomegaly, splenorenal varices, and gastroesophageal varices. 2. Stable left renal atrophy with hydroureter but no distal calculus. 3. Stable 7.2 cm right renal mass. Previous CT exam reports history of right renal cancer. 4. Stable circumferential urinary bladder wall thickening either incomplete distention versus cystitis. 5. Stable bilateral fatty inguinal hernias.
[2019-11-02 09:44] LABS: Absolute Neutrophil Ct (ANC) 1.39 (1.4-6.9); BASOPHIL % 6.6 % (0.0-0.4); Basophil (Absolute #) 0.17 (0-0.4); Eosinophil % 3.5 % (0.00-5.0); Eosinophil (Absolute #) 0.09 (0-0.5); Lymphocyte (Absolute #) 0.51 (1.0-4.6); Lymphocytes % 19.7 % (24.0-44.0); Mean Cell Volume 98.3 fl (78-100); Mean Corpuscular Hemoglobin 30.1 pg (26-32); Mean Corpuscular Hgb Concent. 30.6 g/dl (32-36); Mean Platelet Volume 10.1 fl (7.5-11.0); Monocyte (Absolute #) 0.43 (0.0-1.3); Monocytes % 16.6 % (0.0-12.0); Neutrophil % 53.6 % (36.0-66.0); Platelet Count 60 K/mm3 (150-450); Red Cell Distribution Width 20.5 % (11.5-14.0); White Blood Count 2.6 K/mm3 (4.0-10.5)
[2019-11-02 09:46] LABS: ALBUMIN 3.1 g/dL (3.5-5.0); ANION GAP 14.5 MEQ/L (5-15); BILIRUBIN,TOTAL 1.4 mg/dL (0.2-1.3); Calcium 8.1 mg/dL (8.4-10.2); Creatinine 1 3.98 mg/dL (0.66-1.25); EST GLOMERULAR FILTRATION RATE 15.7 ML/MIN; Potassium 3.8 mmol/L (3.5-5.1); Total Protein 6.6 g/dL (6.3-8.2)
[2019-11-02 09:50] LABS: Hemoglobin 5.2 gm/dl (12.5-18.0); Red Blood Count 1.73 M/mm3 (4.1-5.6)
[2019-11-02 10:08] LABS: Lymphocytes 24 % (24-44); Monocyte 7 % (0.0-12.0); Neutrophils 69 % (36.-66.); Platelet Estimate DECREASED (NORMAL); Total Cells Counted 100
[2019-11-02 10:09] LABS: ANISOCYTOSIS 2+; Poikilocytosis 3+
[2019-11-02] MEDS ORDERED: Levaquin 250MG/50ML D5W 250 MG/50 ML BAG IV STA (10:11)
[2019-11-02] MEDS ORDERED: Zosyn 2.25 GM 2.25 GM in Sodium Chloride 100ML MINI-BAG PLUS 100 ML IV ONE (10:11)
[2019-11-02] MEDS ORDERED: Sodium Chloride 100ML MINI-BAG PLUS 0 ML IV ONE (10:18)
[2019-11-02 10:53] LABS: Appearance CLOUDY (CLEAR); Bilirubin NEGATIVE (NEGATIVE); Blood MODERATE Ery/ul (0-5); Glucose >=500 mg/dL (NEGATIVE); Ketones NEGATIVE (NEGATIVE); Leukocyte Esterase LARGE (NEGATIVE); Nitrite NEGATIVE (NEGATIVE); Protein,Urine Dip 100 (Negative); Specific Gravity 1.008 (1.005-1.025); Urobilinogen NEGATIVE mg/dL (0-1); WBC >100 /HPF (0-5)
[2019-11-02 10:55] LABS: Bacteria MODERATE /HPF (NEGATIVE); Budding Yeast Few /HPF (NEGATIVE); Epithelial Cells FEW /HPF (FEW)
[2019-11-02 11:02] LABS: Amphetamine,Urine NEGATIVE (NEGATIVE); Barbiturate,Urine NEGATIVE (NEGATIVE); Benzodiazepine,Urine NEGATIVE (NEGATIVE); Cocaine,Urine NEGATIVE (NEGATIVE); Methadone,Urine NEGATIVE (NEGATIVE); Opiate,Urine NEGATIVE (NEGATIVE); PCP,Urine NEGATIVE (NEGATIVE); THC,Urine NEGATIVE (NEGATIVE)
[2019-11-02] MEDS ORDERED: Levaquin 250MG/50ML D5W 250 MG/50 ML BAG IV ONE (11:11)
[2019-11-02 11:14] LABS: ABO TYPING AB; Antibody Screen NEGATIVE (NEGATIVE); RH TYPING POSITIVE
[2019-11-02 11:17] LABS: CROSS MATCH (PRBC) COMPATIBLE (COMPATIBLE)
[2019-11-02] MEDS ORDERED: Sodium Chloride 0.9% 1000 ML 1,000 ML ONE (11:17)
[2019-11-02 13:06] VITALS: BP 150/70; PULSE 88
[2019-11-02 22:47] VITALS: O2SAT 99
== END 2019-11-02 13:00 | disposition short-term general hospital (02) ==
LOC: ED 07:53
DX: R53.1 Weakness (principal); R41.0 Disorientation, unspecified; Z99.2 Dependence on renal dialysis; C80.1 Malignant (primary) neoplasm, unspecified; C79.11 Secondary malignant neoplasm of bladder; E11.9 Type 2 diabetes mellitus without complications; N18.6 End stage renal disease; I12.0 Hypertensive chronic kidney disease with stage 5 chronic kidney disease or end stage renal disease; D63.1 Anemia in chronic kidney disease; Z79.899 Other long term (current) drug therapy
CPT/HCPCS: 74176; 80053; 80307; 81001; 82140; 82962; 83605; 83690; 83880; 84484; 85025; 86850; 86900; 86901; 86922; 87040; 87077; 87086; 87186; 93005; 96365; 96367; 99291; P9016; 36000; 36415; 71045; 99285; J1956; J2543

== ENCOUNTER 2019-12-12 10:56 | Emergency (ER) | payer BC, MEDICARE ==
--- NOTE | 2019-12-12 11:07 | ERPHSYRPT ---
- History of Present Illness Time Seen by Provider: 12/12/19 11:07 Source: patient, family Exam Limitations: clinical condition Physician History: This patient is a 74-year-old white male who has end-stage renal disease, hypothyroidism, diabetes, hypertension who undergoes dialysis Thursday and Fridays. Patient presents with weakness and confusion directly from dialysis. Patient underwent a full dialysis prior to arrival. They noticed the patient was confused and weak. Dialysis clinic infused 500 mL of normal saline back into the patient post dialysis. Patient had a similar episode postdialysis on 11/02/2019. Dr. Sebastian is the patient's aircraft cleaner out of [facility] in [place]. Patient has chronic anemia of chronic disease. Severity: moderate Associated Symptoms: weakness, other (Fusion) Allergies/Adverse Reactions: No Known Drug Allergies Allergy (Verified 12/12/19 11:47) Home Medications: Tamsulosin HCl 0.4 mg [Flomax 0.4 MG] 0.4 mg PO DAILY 09/09/14 [History] Bumetanide 2 mg PO BID 02/10/18 [History] Ergocalciferol (Vitamin D2) [Vitamin D2] 50,000 unit PO Q7D 02/10/18 [History] Levothyroxine Sodium 100 Mcg [Synthroid 100 Mcg] 100 mcg PO DAILY 02/10/18 [History] Allopurinol 100 mg [Zyloprim 100 mg] 100 mg PO BID 06/01/18 [History] Glimepiride 2 mg [Amaryl 2 MG] 2 mg PO DAILY 06/01/18 [History] Magnesium Oxide 400 mg [Mag-Ox 400] 400 mg PO BID 06/01/18 [History] Sevelamer HCl [Renagel] 800 mg PO TID 04/14/19 [History] Carvedilol 3.125 mg [Coreg 3.125 MG] 3.125 mg PO DAILY 12/12/19 [History] Meclizine HCl 12.5 mg PO DAILY 12/12/19 [History] Hx Tetanus, Diphtheria Vaccination/Date Given: Yes Hx Influenza Vaccination/Date Given: Yes Hx Pneumococcal Vaccination/Date Given: Yes Travel Risk - International Travel Have you traveled outside of the country in past 3 weeks: No - Coronavirus Screening Are you exhibiting any of the following symptoms?: No Close contact with a COVID-19 positive Pt in past 14-21 Days: No - Review of Systems Constitutional: Weakness Eyes: No Symptoms Ears, Nose, & Throat: No Symptoms Respiratory: No Symptoms Cardiac: No Symptoms Abdominal/Gastrointestinal: No Symptoms Genitourinary Symptoms: No Symptoms Musculoskeletal: No Symptoms Skin: No Symptoms Neurological: Other (Mild confusion.) Psychological: No Symptoms Endocrine: No Symptoms Hematologic/Lymphatic: No Symptoms Immunological/Allergic: No Symptoms All Other Systems: Reviewed and Negative - Past Medical History Pertinent Past Medical History: Yes Neurological History: No Pertinent History ENT History: No Pertinent History Cardiac History: Other Respiratory History: No Pertinent History Endocrine Medical History: No Pertinent History Musculoskeletal History: Arthritis, Fractures GI Medical History: Gallbladder Disease, Hernia, Other History: Kidney Cancer Psycho-Social History: No Pertinent History Male Reproductive Disorders: Prostate Problems Other Medical History: Valve replacement 2019, unsure of what valve. Currently on kidney dialysis,anemia,freq blood transfusions - Past Surgical History Past Surgical History: Yes Neuro Surgical History: No Pertinent History Cardiac: Cardiac Stent, Valve Replacement, Other Respiratory: No Pertinent History Gastrointestinal: Appendectomy, Cholecystectomy Genitourinary: Kidney Surgery Musculoskeletal: Orthopedic Surgery Male Surgical History: No Pertinent History Other Surgical History: fx skull, broken lt leg. 1960 ureter blockage. fistula L arm, aortic valve replacement 12/2018, [place] [facility] july 2019. 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 - Social History Smoking Status: Never smoker Exposure to second hand smoke: No Drug Use: none Patient Lives Alone: No - Nursing Vital Signs Nursing Vital Signs: Initial Vital Signs Pulse Rate 87 12/12/19 11:00 O2 Sat by Pulse Oximetry 99 12/12/19 11:00 Pain Scale Pain Intensity 0 - Physical Exam General Appearance: no apparent distress, alert Eye Exam: PERRL/EOMI Ears, Nose, Throat Exam: dry mucous membranes Neck Exam: normal inspection, non-tender, supple, full range of motion Respiratory Exam: normal breath sounds, lungs clear, airway intact, No chest tenderness, No respiratory distress Cardiovascular Exam: regular rate/rhythm, normal heart sounds, normal peripheral pulses Gastrointestinal/Abdomen Exam: soft, normal bowel sounds, No tenderness Rectal Exam: not done Back Exam: normal inspection, normal range of motion, No CVA tenderness, No vertebral tenderness Extremity Exam: normal inspection, normal range of motion, pelvis stable Neurologic Exam: alert, oriented x 3, cooperative, placement secretary II-XII nml as tested, normal mood/affect, sensation nml Skin Exam: normal color, warm, dry Lymphatic Exam: No adenopathy SpO2 Interpretation: normal O2 Delivery: Room Air Ordered Tests: Active Orders 24 hr Category Date Time Status Painting Contractor STAT Care 12/12/19 11:08 Active EKG-ER Only STAT Care 12/12/19 11:07 Active IV Insertion STAT Care 12/12/19 11:07 Active Pulse Oximetry (ED) STAT Care 12/12/19 11:07 Active CHEST 1 VIEW (PORTABLE) Stat Exams 12/12/19 11:08 Completed CBC W DIFF Stat Lab 12/12/19 11:42 Completed CMP Stat Lab 12/12/19 11:42 Completed CULTURE,URINE Stat Lab 12/12/19 13:00 Received Lactic Acid Stat Lab 12/12/19 11:07 Completed Manual Differential NC Stat Lab 12/12/19 11:42 Completed NT PRO BNP Stat Lab 12/12/19 11:42 Completed PROTIME WITH INR Stat Lab 12/12/19 11:42 Completed UA W/RFX UR CULTURE Stat Lab 12/12/19 13:00 Completed Medication Summary Discontinued Medications Generic Name Dose Route Start Last Admin Trade Name Freq PRN Reason Stop Dose Admin Sodium Chloride Confirm 12/12/19 13:30 Sodium Chloride 0.9% 500 Ml Administered 12/12/19 13:31 Dose 500 mls @ ud IV .STK-MED ONE Lab/Rad Data: Laboratory Result Diagrams 12/12/19 11:42 12/12/19 11:42 Laboratory Results 12/12/19 12/12/19 12/12/19 Range/Units 14:18 13:00 11:42 WBC (4.0-10.5) K/mm3 RBC (4.1-5.6) M/mm3 Hgb (12.5-18.0) gm/dl Hct (42-50) % MCV (78-100) fl MCH (26-32) pg MCHC (32-36) g/dl RDW (11.5-14.0) % Plt Count (150-450) K/mm3 MPV (7.5-11.0) fl Segmented Neutrophils (36.-66.) % Lymphocytes (Manual) (24-44) % Monocytes (Manual) (0.0-12.0) % Eosinophils (Manual) (0.00-3.0) % Toxic Granulation Platelet Estimate (NORMAL) RBC Morphology Poikilocytosis Anisocytosis Schistocytes PT 14.9 H (8.83-12.87) SECONDS INR 1.31 (0.8-3.0) Sodium (137-145) mmol/L Potassium (3.5-5.1) mmol/L Chloride (98-107) mmol/L Carbon Dioxide (22-30) mmol/L Anion Gap (5-15) MEQ/L BUN (9-20) mg/dL Creatinine (0.66-1.25) mg/dL Estimated GFR ML/MIN Glucose (74-106) mg/dL Lactic Acid (0.4-2.0) Calcium (8.4-10.2) mg/dL Total Bilirubin (0.2-1.3) mg/dL AST (17-59) U/L ALT (0-50) U/L Alkaline Phosphatase (38-126) U/L Ammonia < 9 L (9-30) umol/L NT-Pro-B Natriuret Pep (0-1800) pg/mL Serum Total Protein (6.3-8.2) g/dL Albumin (3.5-5.0) g/dL Urine Color YELLOW (YELLOW) Urine Appearance SLIGHTLY CLOUDY (CLEAR) Urine pH 6.0 (5-6) Ur Specific [place] 1.011 (1.005-1.025) Urine Protein NEGATIVE (Negative) Urine Ketones NEGATIVE (NEGATIVE) Urine Blood MODERATE (0-5) Spenser/ul Urine Nitrite NEGATIVE (NEGATIVE) Urine Bilirubin NEGATIVE (NEGATIVE) Urine Urobilinogen NEGATIVE (0-1) mg/dL Ur Leukocyte Esterase LARGE (NEGATIVE) Urine WBC (Auto) 16-25 (0-5) /HPF Urine RBC (Auto) 0-2 (0-2) /HPF U Epithel Cells (Auto) NONE (FEW) /HPF Urine Bacteria (Auto) FEW (NEGATIVE) /HPF Urine Culture Reflexed YES (NO) Urine Glucose NEGATIVE (NEGATIVE) mg/dL ABO Group Rh Factor Antibody Screen (NEGATIVE) Crossmatch (COMPATIBLE) 12/12/19 12/12/19 12/12/19 Range/Units 11:42 11:42 11:20 WBC 4.8 (4.0-10.5) K/mm3 RBC 1.49 L* (4.1-5.6) M/mm3 Hgb 4.6 L* (12.5-18.0) gm/dl Hct 14.0 L (42-50) % MCV 94.0 (78-100) fl MCH 30.9 (26-32) pg MCHC 32.9 (32-36) g/dl RDW 18.9 H (11.5-14.0) % Plt Count 100 L (150-450) K/mm3 MPV 10.4 (7.5-11.0) fl Segmented Neutrophils 71 H (36.-66.) % Lymphocytes (Manual) 23 L (24-44) % Monocytes (Manual) 4 (0.0-12.0) % Eosinophils (Manual) 2 (0.00-3.0) % Toxic Granulation 1+ Platelet Estimate DECREASED (NORMAL) RBC Morphology ABNORMAL Poikilocytosis 1+ Anisocytosis 1+ Schistocytes 1+ PT (8.83-12.87) SECONDS INR (0.8-3.0) Sodium 132 L (137-145) mmol/L Potassium 3.7 (3.5-5.1) mmol/L Chloride 94 L (98-107) mmol/L Carbon Dioxide 31 H (22-30) mmol/L Anion Gap 10.8 (5-15) MEQ/L BUN 41 H (9-20) mg/dL Creatinine 1.88 H (0.66-1.25) mg/dL Estimated GFR 37.3 ML/MIN Glucose 193 H (74-106) mg/dL Lactic Acid (0.4-2.0) Calcium 8.3 L (8.4-10.2) mg/dL Total Bilirubin 1.80 H (0.2-1.3) mg/dL AST 38 (17-59) U/L ALT 15 (0-50) U/L Alkaline Phosphatase 171 H (38-126) U/L Ammonia (9-30) umol/L NT-Pro-B Natriuret Pep 7680 H (0-1800) pg/mL Serum Total Protein 6.4 (6.3-8.2) g/dL Albumin 3.1 L (3.5-5.0) g/dL Urine Color (YELLOW) Urine Appearance (CLEAR) Urine pH (5-6) Ur Specific [place] (1.005-1.025) Urine Protein (Negative) Urine Ketones (NEGATIVE) Urine Blood (0-5) Sepnser/ul Urine Nitrite (NEGATIVE) Urine Bilirubin (NEGATIVE) Urine Urobilinogen (0-1) mg/dL Ur Leukocyte Esterase (NEGATIVE) Urine WBC (Auto) (0-5) /HPF Urine RBC (Auto) (0-2) /HPF U Epithel Cells (Auto) (FEW) /HPF Urine Bacteria (Auto) (NEGATIVE) /HPF Urine Culture Reflexed (NO) Urine Glucose (NEGATIVE) mg/dL ABO Group Rh Factor Antibody Screen (NEGATIVE) Crossmatch COMPATIBLE (COMPATIBLE) 12/12/19 12/12/19 Range/Units 11:20 11:07 WBC (4.0-10.5) K/mm3 RBC (4.1-5.6) M/mm3 Hgb (12.5-18.0) gm/dl Hct (42-50) % MCV (78-100) fl MCH (26-32) pg MCHC (32-36) g/dl RDW (11.5-14.0) % Plt Count (150-450) K/mm3 MPV (7.5-11.0) fl Segmented Neutrophils (36.-66.) % Lymphocytes (Manual) (24-44) % Monocytes (Manual) (0.0-12.0) % Eosinophils (Manual) (0.00-3.0) % Toxic Granulation Platelet Estimate (NORMAL) RBC Morphology Poikilocytosis Anisocytosis Schistocytes PT (8.83-12.87) SECONDS INR (0.8-3.0) Sodium (137-145) mmol/L Potassium (3.5-5.1) mmol/L Chloride (98-107) mmol/L Carbon Dioxide (22-30) mmol/L Anion Gap (5-15) MEQ/L BUN (9-20) mg/dL Creatinine (0.66-1.25) mg/dL Estimated GFR ML/MIN Glucose (74-106) mg/dL Lactic Acid 1.8 (0.4-2.0) Calcium (8.4-10.2) mg/dL Total Bilirubin (0.2-1.3) mg/dL AST (17-59) U/L ALT (0-50) U/L Alkaline Phosphatase (38-126) U/L Ammonia (9-30) umol/L NT-Pro-B Natriuret Pep (0-1800) pg/mL Serum Total Protein (6.3-8.2) g/dL Albumin (3.5-5.0) g/dL Urine Color (YELLOW) Urine Appearance (CLEAR) Urine pH (5-6) Ur Specific [place] (1.005-1.025) Urine Protein (Negative) Urine Ketones (NEGATIVE) Urine Blood (0-5) Spenser/ul Urine Nitrite (NEGATIVE) Urine Bilirubin (NEGATIVE) Urine Urobilinogen (0-1) mg/dL Ur Leukocyte Esterase (NEGATIVE) Urine WBC (Auto) (0-5) /HPF Urine RBC (Auto) (0-2) /HPF U Epithel Cells (Auto) (FEW) /HPF Urine Bacteria (Auto) (NEGATIVE) /HPF Urine Culture Reflexed (NO) Urine Glucose (NEGATIVE) mg/dL ABO Group AB Rh Factor POSITIVE Antibody Screen NEGATIVE (NEGATIVE) Crossmatch COMPATIBLE (COMPATIBLE) - Progress Progress: improved, re-examined Progress Note: 12/12/19 14:13 Medical decision making: This patient has symptomatic anemia as well as congestive heart failure. He is post dialysis from today. He has some encephalopathy as well. I spoke with his aircraft cleaner, Dr. Sebastian, who accepts this patient in transfer. The aircraft cleaner and family prefer [facility] in [facility]. I reviewed the patient history, condition and laboratory results with his aircraft cleaner. I also discussed the above with the patient spouse. 12/12/19 14:[address] Chacon, the emergency department doctor at [facility]. I reviewed the patient history, conditions and laboratory data. We will send the patient to the emergency department. Counseled pt/family regarding: lab results, diagnosis, need for follow-up - Departure Departure Disposition: Transfer Clinical Impression: Symptomatic anemia, CHF (congestive heart failure), Encephalopathy Condition: Stable Critical Care Time: Yes Critical Care Time(excluding separately billable procedures): Critical 30-74 mins Referrals: ALTON OLIVA [Primary Care Provider] - Instructions: Heart Failure
[2019-12-12 11:45] LABS: Mean Corpuscular Hemoglobin 30.9 pg (26-32); Mean Corpuscular Hgb Concent. 32.9 g/dl (32-36); Mean Platelet Volume 10.4 fl (7.5-11.0); Platelet Count 100 K/mm3 (150-450); Red Cell Distribution Width 18.9 % (11.5-14.0); White Blood Count 4.8 K/mm3 (4.0-10.5)
[2019-12-12 11:52] LABS: Hemoglobin 4.6 gm/dl (12.5-18.0); Red Blood Count 1.49 M/mm3 (4.1-5.6)
--- NOTE | 2019-12-12 11:58 | XRAY ---
Indication: Weakness and confusion. Comparison: November 02, 2019. Portable chest now underinflated accentuating cardiopulmonary structures with stable cardiac valve replacement surgery and left Port-A-Cath. No focal infiltrate, consolidation, or large effusion. Bony thorax intact again with mild degenerative changes. Impression: Nonacute underinflated chest with chronic features.
[2019-12-12 12:00] LABS: INR 1.31 (0.8-3.0); PROTIME 14.9 SECONDS (8.83-12.87)
[2019-12-12 12:16] LABS: ALBUMIN 3.1 g/dL (3.5-5.0); ANION GAP 10.8 MEQ/L (5-15); BILIRUBIN,TOTAL 1.8 mg/dL (0.2-1.3); Calcium 8.3 mg/dL (8.4-10.2); Creatinine 1 1.88 mg/dL (0.66-1.25); EST GLOMERULAR FILTRATION RATE 37.3 ML/MIN; Potassium 3.7 mmol/L (3.5-5.1); Total Protein 6.4 g/dL (6.3-8.2)
[2019-12-12 12:39] LABS: ABO TYPING AB; Antibody Screen NEGATIVE (NEGATIVE); RH TYPING POSITIVE
[2019-12-12 12:40] LABS: CROSS MATCH (PRBC) COMPATIBLE (COMPATIBLE)
[2019-12-12] MEDS ORDERED: Sodium Chloride 0.9% 500 ML 500 ML IV ONE (13:30)
[2019-12-12 14:13] LABS: Appearance SLIGHTLY CLOUDY (CLEAR); Bacteria FEW /HPF (NEGATIVE); Bilirubin NEGATIVE (NEGATIVE); Blood MODERATE Ery/ul (0-5); Glucose NEGATIVE (NEGATIVE); Ketones NEGATIVE (NEGATIVE); Leukocyte Esterase LARGE (NEGATIVE); Nitrite NEGATIVE (NEGATIVE); Protein,Urine Dip NEGATIVE (Negative); RBC 0-2 /HPF (0-2); Specific Gravity 1.011 (1.005-1.025); Urobilinogen NEGATIVE mg/dL (0-1)
[2019-12-12 14:22] LABS: ANISOCYTOSIS 1+; Eosinophil 2 % (0.00-3.0); Lymphocytes 23 % (24-44); Monocyte 4 % (0.0-12.0); Neutrophils 71 % (36.-66.); Platelet Estimate DECREASED (NORMAL); Poikilocytosis 1+; Schistocytes 1+; Total Cells Counted 100; Toxic Granulation 1+
[2019-12-12 15:56] VITALS: PULSE 83; O2SAT 98
[2019-12-12 16:06] VITALS: BP 129/52
== END 2019-12-12 18:21 | disposition short-term general hospital (02) ==
LOC: ED 10:56
DX: D64.9 Anemia, unspecified (principal); I50.9 Heart failure, unspecified; G93.40 Encephalopathy, unspecified; N18.6 End stage renal disease; E03.9 Hypothyroidism, unspecified; Z79.899 Other long term (current) drug therapy
CPT/HCPCS: 80053; 81001; 82140; 83605; 83880; 85025; 85610; 86850; 86900; 86901; 86922; 87086; 93005; 93041; 96360; 99291; P9016; 36000; 36415; 71045; 94760; 99285

== ENCOUNTER 2019-12-21 18:44 | Emergency (ER) | payer BC, MEDICARE ==
--- NOTE | 2019-12-21 19:33 | ERPHSYRPT ---
- History of Present Illness Time Seen by Provider: 12/21/19 19:00 Source: patient, family Exam Limitations: no limitations Patient Subjective Stated Complaint: Pt states "He has fatty cirrhosis of the liver and he has chronic anemia. He has not eaten much or drank much today." Triage Nursing Assessment: Pt presented alert and oriented X 3, skin pwd Pt ambulates with a wide gait, able to speak in clear full sentences. Pt skin jaundiced, pt has generalized weakness bilat. Physician History: Patient has a history of end-stage renal disease. He gets dialysis Thursday and Thursday. states that today he was feeling very weak and not eating much so he did not go to dialysis. brought him to the ER because of his generalized weakness. Patient does not have any other complaint. states that patient has a history of kidney cancer and prostate problem. Patient also has a cardiac issues. This that patient has a history of anemia and he gets a blood transfusion every week in [place] Timing/Duration: today Severity: severe Modifying Factors: Worsens With: immobilization, medication, movement Associated Symptoms: No nausea, No vomiting, No abdominal pain, No shortness of breath, No chest pain Allergies/Adverse Reactions: No Known Drug Allergies Allergy (Verified 12/12/19 11:47) Home Medications: Tamsulosin HCl 0.4 mg [Flomax 0.4 MG] 0.4 mg PO DAILY 09/09/14 [History] Bumetanide 2 mg PO BID 02/10/18 [History] Ergocalciferol (Vitamin D2) [Vitamin D2] 50,000 unit PO Q7D 02/10/18 [History] Levothyroxine Sodium 100 Mcg [Synthroid 100 Mcg] 100 mcg PO DAILY 02/10/18 [History] Allopurinol 100 mg [Zyloprim 100 mg] 100 mg PO BID 06/01/18 [History] Glimepiride 2 mg [Amaryl 2 MG] 2 mg PO DAILY 06/01/18 [History] Magnesium Oxide 400 mg [Mag-Ox 400] 400 mg PO BID 06/01/18 [History] Sevelamer HCl [Renagel] 800 mg PO TID 04/14/19 [History] Carvedilol 3.125 mg [Coreg 3.125 MG] 3.125 mg PO DAILY 12/12/19 [History] Meclizine HCl 12.5 mg PO DAILY 12/12/19 [History] Hx Tetanus, Diphtheria Vaccination/Date Given: Yes Hx Influenza Vaccination/Date Given: Yes Hx Pneumococcal Vaccination/Date Given: Yes Immunizations Up to Date: Yes Travel Risk - International Travel Have you traveled outside of the country in past 3 weeks: No - Coronavirus Screening Are you exhibiting any of the following symptoms?: No Close contact with a COVID-19 positive Pt in past 14-21 Days: No - Review of Systems Constitutional: Fatigue, Lethargy, Malaise, Weakness Eyes: No Symptoms Ears, Nose, & Throat: No Symptoms Respiratory: No Cough, No Dyspnea Cardiac: No Chest Pain, No Edema, No Syncope Abdominal/Gastrointestinal: No Abdominal Pain, No Nausea, No Vomiting, No Diarrhea Genitourinary Symptoms: No Dysuria Musculoskeletal: No Back Pain, No Neck Pain Skin: No Rash Neurological: No Dizziness, No Focal Weakness, No Sensory Changes Psychological: No Symptoms Endocrine: No Symptoms All Other Systems: Reviewed and Negative - Past Medical History Pertinent Past Medical History: Yes Neurological History: No Pertinent History ENT History: No Pertinent History Cardiac History: Other Respiratory History: No Pertinent History Endocrine Medical History: No Pertinent History Musculoskeletal History: Arthritis, Fractures GI Medical History: Gallbladder Disease, Hernia, Other History: Kidney Cancer Psycho-Social History: No Pertinent History Male Reproductive Disorders: Prostate Problems Other Medical History: Valve replacement 2019, unsure of what valve. Currently on kidney dialysis,anemia,freq blood transfusions - Past Surgical History Past Surgical History: Yes Neuro Surgical History: No Pertinent History Cardiac: Cardiac Stent, Valve Replacement, Other Respiratory: No Pertinent History Gastrointestinal: Appendectomy, Cholecystectomy Genitourinary: Kidney Surgery Musculoskeletal: Orthopedic Surgery Male Surgical History: No Pertinent History Other Surgical History: fx skull, broken lt leg. 1960 ureter blockage. fistula L arm, aortic valve replacement 12/2018, [facility] july 2019. 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 - Social History Smoking Status: Never smoker Exposure to second hand smoke: No Drug Use: none Patient Lives Alone: No - Nursing Vital Signs Nursing Vital Signs: Initial Vital Signs Temperature 98.4 F 12/21/19 18:54 Pulse Rate 94 H 12/21/19 18:54 Respiratory Rate 20 12/21/19 18:54 Blood Pressure 143/55 12/21/19 18:54 O2 Sat by Pulse Oximetry 94 L 12/21/19 18:54 Pain Scale Pain Intensity 0 - Physical Exam General Appearance: no apparent distress, alert Eye Exam: PERRL/EOMI, eyes nml inspection, scleral icterus (Minimal) Ears, Nose, Throat Exam: normal ENT inspection, TMs normal, pharynx normal, moist mucous membranes Neck Exam: normal inspection, non-tender, supple, full range of motion Respiratory Exam: normal breath sounds, lungs clear, No respiratory distress Cardiovascular Exam: regular rate/rhythm, normal heart sounds, normal peripheral pulses Gastrointestinal/Abdomen Exam: soft, normal bowel sounds, distention, No tenderness, No mass, No pulsatile mass, No rebound, No hernia Back Exam: normal inspection, normal range of motion, No CVA tenderness, No vertebral tenderness Extremity Exam: normal inspection, normal range of motion, pelvis stable Neurologic Exam: alert, oriented x 3, cooperative, normal mood/affect, nml ce rebellar function, nml station & gait, sensation nml, No motor deficits Skin Exam: normal color, warm, dry, No rash Lymphatic Exam: No adenopathy SpO2 Interpretation: normal SpO2: 94 O2 Delivery: Room Air - Course Nursing assessment & vital signs reviewed: Yes Ordered Tests: Active Orders 24 hr Category Date Time Status EKG-ER Only STAT Care 12/21/19 19:49 Active IV Insertion STAT Care 12/21/19 19:49 Active Pulse Oximetry (ED) STAT Care 12/21/19 19:49 Active CBC W DIFF Stat Lab 12/21/19 19:44 Completed CK-Creatinine Phosphokinase Stat Lab 12/21/19 19:44 Completed CMP Stat Lab 12/21/19 19:44 Completed MAGNESIUM Stat Lab 12/21/19 20:24 Completed Manual Differential NC Stat Lab 12/21/19 19:44 Completed NT PRO BNP Stat Lab 12/21/19 19:44 Completed TROPONIN Stat Lab 12/21/19 19:44 Completed TSH [TSH, 3RD Generation] Stat Lab 12/21/19 20:24 Completed Lab/Rad Data: Laboratory Result Diagrams 12/21/19 19:44 12/21/19 19:44 Laboratory Results 12/21/19 12/21/19 12/21/19 Range/Units 20:24 19:44 19:44 WBC 3.0 L (4.0-10.5) K/mm3 RBC 2.25 L (4.1-5.6) M/mm3 Hgb 6.7 L* (12.5-18.0) gm/dl Hct 20.9 L (42-50) % MCV 92.9 (78-100) fl MCH 29.8 (26-32) pg MCHC 32.1 (32-36) g/dl RDW 17.5 H (11.5-14.0) % Plt Count 48 L (150-450) K/mm3 MPV 11.6 H (7.5-11.0) fl Sodium 132 L (137-145) mmol/L Potassium 3.9 (3.5-5.1) mmol/L Chloride 97 L (98-107) mmol/L Carbon Dioxide 26 (22-30) mmol/L Anion Gap 13.0 (5-15) MEQ/L BUN 67 H (9-20) mg/dL Creatinine 4.20 H (0.66-1.25) mg/dL Estimated GFR 14.7 ML/MIN Glucose 347 H (74-106) mg/dL Calcium 8.1 L (8.4-10.2) mg/dL Magnesium 2.3 (1.6-2.3) mg/dL Total Bilirubin 8.20 H (0.2-1.3) mg/dL AST 99 H (17-59) U/L ALT 48 (0-50) U/L Alkaline Phosphatase 347 H (38-126) U/L Creatine Kinase 23 L (55-170) U/L Troponin I 0.027 (0.000-0.034) ng/mL NT-Pro-B Natriuret Pep 62242 H (0-1800) pg/mL Serum Total Protein 6.4 (6.3-8.2) g/dL Albumin 2.9 L (3.5-5.0) g/dL TSH 3rd Generation 2.180 (0.47-4.68) mIU/L - Progress Progress: unchanged, re-examined Progress Note: 12/21/19 20:57 I am on phone with Nadja at [facility] 12/21/19 21:17 Dr Brennan had told me to transfer the patient as pt has Antibodies in his blodd and he can get the blood faster at [facility], plus all his specialists are there anyway 12/21/19 21:38 [facility] told us that they cannot accept the patient because they are swamped at this minute. They told us to transfer the patient to other hospital. 12/21/19 21:43 [facility] also told us that they cannot accept the patient because they had no beds 12/21/19 21:[address] Estes at [facility]. He told me to talk to Dr Morales. 0951 AM - I called Dr Morales. He told me to transfer pt, as it takes 3 days to get blood [phone] I called [facility] and talked to Dr Estes. He accepted the pt to [place] . They will call us back with room number Discussed with : Jacob, Josh (Dr Morales told me to transfer pt to [facility] as pt has AB ) Counseled pt/family regarding: diagnosis - Departure Departure Disposition: Transfer Clinical Impression: General weakness Anemia Qualifiers: Anemia type: unspecified type Qualified Code(s): D64.9 - Anemia, unspecified Condition: Stable Critical Care Time: No Referrals: ALTON OLIVA [Primary Care Provider] -
[2019-12-21 20:26] LABS: Hematocrit 20.9 % (42-50); Mean Cell Volume 92.9 fl (78-100); Mean Corpuscular Hemoglobin 29.8 pg (26-32); Mean Corpuscular Hgb Concent. 32.1 g/dl (32-36); Mean Platelet Volume 11.6 fl (7.5-11.0); Platelet Count 48 K/mm3 (150-450); Red Blood Count 2.25 M/mm3 (4.1-5.6); Red Cell Distribution Width 17.5 % (11.5-14.0)
[2019-12-21 20:29] LABS: Hemoglobin 6.7 gm/dl (12.5-18.0)
[2019-12-21 20:38] LABS: ALBUMIN 2.9 g/dL (3.5-5.0); BILIRUBIN,TOTAL 8.2 mg/dL (0.2-1.3); Calcium 8.1 mg/dL (8.4-10.2); Creatinine 1 4.2 mg/dL (0.66-1.25); EST GLOMERULAR FILTRATION RATE 14.7 ML/MIN; Potassium 3.9 mmol/L (3.5-5.1); TROPONIN 0.027 ng/mL (0.000-0.034); Total Protein 6.4 g/dL (6.3-8.2)
[2019-12-21 21:08] LABS: MAGNESIUM 2.3 mg/dL (1.6-2.3); TSH, 3RD Generation 2.18 mIU/L (0.47-4.68)
[2019-12-21 22:36] LABS: ANISOCYTOSIS 1+; BAND 1 % (0.0-2.0); Lymphocytes 26 % (24-44); Monocyte 1 % (0.0-12.0); Neutrophils 72 % (36.-66.); Platelet Estimate DECREASED (NORMAL); Total Cells Counted 100
[2019-12-22 00:16] VITALS: O2SAT 95
[2019-12-22 01:09] VITALS: BP 112/68; PULSE 84
== END 2019-12-22 01:03 | disposition short-term general hospital (02) ==
LOC: ED 18:44
DX: R53.1 Weakness (principal); D64.9 Anemia, unspecified; N18.6 End stage renal disease; R53.83 Other fatigue; Z79.899 Other long term (current) drug therapy; Z99.2 Dependence on renal dialysis
CPT/HCPCS: 36000; 36415; 80053; 82550; 83735; 83880; 84443; 84484; 85025; 93005; 94760; 99285

== ENCOUNTER 2020-01-17 19:00 | Emergency (ER) | payer BC, MEDICARE ==
--- NOTE | 2020-01-17 19:47 | ERPHSYRPT ---
- History of Present Illness Source: patient Exam Limitations: other (Pt poor historian) Patient Subjective Stated Complaint: family states that pt had dialysis today and has been bleeding from fistula in his lt arm since. pt confused and platinum, family declined to come back with pt to exam room. pt roel historian Triage Nursing Assessment: pt alert, confused. back per wheelchair, assist of 1 to stretcher, pt unsteady. skin warm and dry. respirations nonlabored. drsg co vering fistula to lt forearm with blod noted. when removed, 1 area to fistula with bleeding noted. Physician History: 74 yo wm w bleeding from L AV shunt after dialysis today. No other issues to address. Occurred: this afternoon Method of Injury: other (Dialysis) Severity of Pain-Max: none Severity of Pain-Current: none Extremities Pain Location: wrist: left (Bleeding AV shunt) Modifying Factors: Improves With: nothing Associated Symptoms: none Allergies/Adverse Reactions: No Known Drug Allergies Allergy (Verified 01/17/20 19:29) Home Medications: Tamsulosin HCl 0.4 mg [Flomax 0.4 MG] 0.4 mg PO DAILY 09/09/14 [History] Bumetanide 2 mg PO BID 02/10/18 [History] Ergocalciferol (Vitamin D2) [Vitamin D2] 50,000 unit PO Q7D 02/10/18 [History] Levothyroxine Sodium 100 Mcg [Synthroid 100 Mcg] 100 mcg PO DAILY 02/10/18 [History] Allopurinol 100 mg [Zyloprim 100 mg] 100 mg PO BID 06/01/18 [History] Glimepiride 2 mg [Amaryl 2 MG] 2 mg PO DAILY 06/01/18 [History] Magnesium Oxide 400 mg [Mag-Ox 400] 400 mg PO BID 06/01/18 [History] Sevelamer HCl [Renagel] 800 mg PO TID 04/14/19 [History] Carvedilol 3.125 mg [Coreg 3.125 MG] 3.125 mg PO DAILY 12/12/19 [History] Meclizine HCl 12.5 mg PO DAILY 12/12/19 [History] Hx Tetanus, Diphtheria Vaccination/Date Given: Yes Hx Influenza Vaccination/Date Given: Yes Hx Pneumococcal Vaccination/Date Given: Yes Immunizations Up to Date: Yes Travel Risk - International Travel Have you traveled outside of the country in past 3 weeks: No - Coronavirus Screening Are you exhibiting any of the following symptoms?: No Close contact with a COVID-19 positive Pt in past 14-21 Days: No - Review of Systems Constitutional: No Symptoms Eyes: No Symptoms Ears, Nose, & Throat: No Symptoms Respiratory: No Symptoms Cardiac: No Symptoms Abdominal/Gastrointestinal: No Symptoms Skin: No Symptoms Neurological: No Symptoms Psychological: No Symptoms Endocrine: No Symptoms Hematologic/Lymphatic: Easy Bleeding Immunological/Allergic: No Symptoms - Past Medical History Pertinent Past Medical History: Yes Neurological History: No Pertinent History ENT History: No Pertinent History Cardiac History: Other Respiratory History: No Pertinent History Endocrine Medical History: No Pertinent History Musculoskeletal History: Arthritis, Fractures GI Medical History: Gallbladder Disease, Hernia, Other History: Dialysis, Kidney Cancer Psycho-Social History: No Pertinent History Male Reproductive Disorders: Prostate Problems Other Medical History: Valve replacement 2019, unsure of what valve. Currently on kidney dialysis,anemia,freq blood transfusions - Past Surgical History Past Surgical History: Yes Neuro Surgical History: No Pertinent History Cardiac: Cardiac Stent, Valve Replacement, Other Respiratory: No Pertinent History Gastrointestinal: Appendectomy, Cholecystectomy Genitourinary: Kidney Surgery Musculoskeletal: Orthopedic Surgery Male Surgical History: No Pertinent History Other Surgical History: fx skull, broken lt leg. 1960 ureter blockage. fistula L arm, aortic valve replacement 12/2018, [place] [facility] july 2019. 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 - Social History Smoking Status: Never smoker Exposure to second hand smoke: No Drug Use: none Patient Lives Alone: No Significant Family History: no pertinent family hx - Nursing Vital Signs Nursing Vital Signs: Initial Vital Signs Temperature 98.0 F 01/17/20 19:21 Pulse Rate 80 01/17/20 19:21 Respiratory Rate 18 01/17/20 19:21 Blood Pressure 128/54 01/17/20 19:21 O2 Sat by Pulse Oximetry 98 01/17/20 19:21 Pain Scale Pain Intensity 0 - Physical Exam General Appearance: no apparent distress Eyes, Ears, Nose, Throat Exam: normal ENT inspection, TMs normal, pharynx norm al, moist mucous membranes Neck Exam: normal inspection, non-tender, No Brudzinski, No Kernig's, No meningismus Cardiovascular/Respiratory Exam: normal breath sounds, regular rate/rhythm, murmur (2/6 LEANA), rales (Bases B) Abdominal Exam: non-tender, soft (Obese) Back Exam: normal inspection Shoulder Exam: normal inspection Wrist Exam: normal inspection Hand Exam: normal inspection Neuro/Tendon Exam: normal sensation, normal motor functions Mental Status Exam: alert, disoriented to time Skin Exam: normal color, warm, dry SpO2 Interpretation: normal SpO2: 98 O2 Delivery: Room Air - Course Nursing assessment & vital signs reviewed: Yes Ordered Tests: Active Orders 24 hr Category Date Time Status Sutures STAT Care 01/17/20 20:25 Active - Progress Progress: improved Progress Note: 01/17/20 19:47 3.0 Prolene placed x1 L ventral forearm w good hemostasis/no comps Counseled pt/family regarding: need for follow-up - Departure Departure Disposition: Home Clinical Impression: Hemorrhage of arteriovenous fistula Condition: Good Critical Care Time: No Referrals: ALTON OLIVA [Primary Care Provider] - Instructions: Arteriovenous Shunt (DC) Additional Instructions: Follow up for dialysis as usual Return to ER if bleeding restarts
[2020-01-17 20:07] VITALS: BP 118/48; PULSE 81
[2020-01-17 20:44] VITALS: O2SAT 98
== END 2020-01-17 20:20 | disposition home or self-care (01) ==
LOC: ED 19:00
DX: T82.838A Hemorrhage due to vascular prosthetic devices, implants and grafts, initial encounter (principal); Z99.2 Dependence on renal dialysis; Z79.899 Other long term (current) drug therapy; Z85.528 Personal history of other malignant neoplasm of kidney
CPT/HCPCS: 99283